=== PATIENT | female | born 1945 | race Caucasian/White ===

== ENCOUNTER → 2016-11-28 | Outpatient (CLI) | payer MEDICARE, OTHER | LOC: RAD 14:22 | PROVIDERS: ATTEND Specialist | DX: C50.919 Malignant neoplasm of unspecified site of unspecified female breast (principal); C79.51 Secondary malignant neoplasm of bone | CPT/HCPCS: 71260; 74160 ==

== ENCOUNTER → 2016-12-09 | Outpatient (CLI) | payer MEDICARE, OTHER | LOC: RAD 09:35 | PROVIDERS: ATTEND Specialist | DX: C50.919 Malignant neoplasm of unspecified site of unspecified female breast (principal); C79.51 Secondary malignant neoplasm of bone | CPT/HCPCS: 78306; A9503; Q9969 ==

== ENCOUNTER 2017-03-17 14:04 | Inpatient (IN) | payer MEDICARE ==
--- NOTE | 2017-03-17 14:21 | ER Document Report ---
ED General - General Stated Complaint: ABDOMINAL PAIN Time Seen by Provider: 03/17/17 14:14 Mode of Arrival: Medic Information source: Patient, Emergency Med Personnel TRAVEL OUTSIDE OF THE [place] IN LAST 30 DAYS: No - HPI Onset: Last week Onset/Duration: Gradual Quality of pain: Achy, Dull Severity: Moderate Associated symptoms: Fever - MAYBE, NOT SURE, Leg swelling, Shortness of breath , Weakness Exacerbated by: Movement Relieved by: Remaining still Similar symptoms previously: No Recently seen / treated by doctor: Yes - Related Data Allergies/Adverse Reactions: aspirin [Aspirin] Allergy (Verified 07/20/15 17:17) Penicillins Allergy (Verified 07/20/15 17:17) mycins Allergy (Severe, Uncoded 07/20/15 17:17) Past Medical History - General Information source: Patient - Social History Smoking Status: Unknown if Ever Smoked Cigarette use (# per day): No Chew tobacco use (# tins/day): No Frequency of alcohol use: None Drug Abuse: None Lives with: Family - + CAREGIVER Family History: Reviewed & Not Pertinent Patient has suicidal ideation: No Patient has homicidal ideation: No - Past Medical History Cardiac Medical History: Reports: Hx Pulmonary Embolism Denies: Hx Coronary Artery Disease, Hx Heart Attack, Hx Hypercholesterolemia , Hx Hypertension Pulmonary Medical History: Reports: Hx Asthma, Hx COPD Denies: Hx Bronchitis, Hx Pneumonia Neurological Medical History: Denies: Hx Cerebrovascular Accident, Hx Seizures Endocrine Medical History: Denies: Hx Diabetes Mellitus Type 1, Hx Diabetes Mellitus Type 2, Hx Hyperthyroidism, Hx Hypothyroidism Malignancy Medical History: Reports: Hx Bone Cancer, Hx Breast Cancer - Metastatic to liver and bone GI Medical History: Denies: Hx Cirrhosis, Hx Gastroesophageal Reflux Disease, Hx Hepatitis Musculoskeltal Medical History: Denies Hx Arthritis Skin Medical History: Denies Hx Eczema, Denies Hx Psoriasis Psychiatric Medical History: Reports: Hx Depression Infectious Medical History: Denies: Hx Hepatitis Past Surgical History: Reports: Hx Breast Surgery - Immunizations Hx Diphtheria, Pertussis, Tetanus Vaccination: No Hx Pneumococcal Vaccination: 08/04/11 Review of Systems - Review of Systems Constitutional: Fever, Weakness EENT: No symptoms reported Cardiovascular: Dyspnea, Edema Respiratory: Short of breath Gastrointestinal: See HPI, Abdomen distended, Abdominal pain Genitourinary: No symptoms reported Female Genitourinary: Post menopausal Musculoskeletal: No symptoms reported Skin: No symptoms reported Neurological/Psychological: Weakness Physical Exam - Vital signs Vitals: Resp Pulse Ox 14 99 03/17/17 14:26 03/17/17 14:26 Interpretation: Normal - General General appearance: Appears well, Alert In distress: None - HEENT Head: Normocephalic Eyes: Pale conjunctiva Ears: Normal Nasal: Normal Mouth/Lips: Normal Mucous membranes: Dry - MILDLY Pharynx: Normal Neck: Normal - Respiratory Respiratory status: No respiratory distress Breath sounds: Normal - Cardiovascular Rhythm: Regular Heart sounds: Normal auscultation Murmur: No - Abdominal Distension: Fluid wave Bowel sounds: Hypoactive Tenderness: Tender - DIFFUSELY - Back Back: Normal - Extremities General upper extremity: Normal inspection General lower extremity: Edema - 2+, BILAT. - Neurological Neuro grossly intact: Yes Cognition: Normal Orientation: AAOx4 - Psychological Associated symptoms: Normal affect, Normal mood - Skin Skin Temperature: Warm Skin Moisture: Dry Skin Color: Normal Skin Turgor: Elastic Course - Vital Signs Vital signs: Temp Pulse Resp BP Pulse Ox 98.7 F 93 20 139/88 H 97 03/17/17 14:33 03/17/17 14:33 03/17/17 21:01 03/17/17 21:01 03/17/17 21:01 - Laboratory Result Diagrams: 03/17/17 14:45 03/17/17 16:05 Laboratory results interpreted by me: 03/17/17 03/17/17 03/17/17 14:45 15:14 16:05 Hgb 16.0 H MCV 100 H MCH 34.2 H RDW 16.2 H Plt Count 139 L Chloride 92 L Carbon Dioxide 38 H Total Bilirubin 1.8 H Direct Bilirubin 1.2 H AST 163 H Alkaline Phosphatase 284 H Urine Protein 30 H Urine Ketones TRACE H Urine Bilirubin SMALL H Urine Urobilinogen 4.0 H - Consults DR. CARDOZO Time consulted: 23:16 Reason for consultation: 03/17/17 23:28 RESULTS OF LAB & RADIOGRAPHIC STUDIES DISCUSSED. ACUTE SURGICAL PROBLEM FELT TO BE EXTREMELY UNLIKELY. WILL SEE IN CONSULTATION PRN. 03/17/17 23:29 DR. SMITH Time consulted: 23:20 Reason for consultation: 03/17/17 23:[address] SMITH. Consulted provider: will see as inpatient Discharge - Discharge Clinical Impression: Spontaneous bacterial peritonitis Abdominal pain Qualifiers: Abdominal location: generalized Qualified Code(s): R10.84 - Generalized abdominal pain Breast cancer metastasized to liver Qualifiers: Laterality: left Qualified Code(s): C50.912 - Malignant neoplasm of unspecified site of left female breast Ascites Qualifiers: Ascites type: malignant Qualified Code(s): R18.0 - Malignant ascites Condition: Fair Disposition: ADMITTED INPATIENT Admitting Provider: [facility] Unit Admitted: Medical Floor Referrals: JHON BEATTY MD [Primary Care Provider] - Follow up as needed
[2017-03-17 15:21] LABS: ABSOLUTE BASOPHILS # (AUTO) 0.1 10^3/uL (0.0-0.2); ABSOLUTE LYMPHOCYTES (AUTO) 1.5 10^3/uL (0.5-4.7); ABSOLUTE MONOCYTES (AUTO) 1.2 10^3/uL (0.1-1.4); ABSOLUTE NEUT (AUTO) 7.7 10^3/uL (1.7-8.2); BASOPHILS % (AUTO) 0.6 % (0-2); EOSINOPHILS % (AUTO) 0.3 % (0-6); HEMATOCRIT 46.5 % (36.0-47.0); HGB HCT DIFFERENCE 1.5; LYMPHOCYTES % (AUTO) 14.7 % (13-45); MEAN CORPUSCULAR HEMOGLOBIN 34.2 pg (27.0-33.4); MEAN CORPUSCULAR HGB CONC 34.3 g/dL (32.0-36.0); MEAN CORPUSCULAR VOLUME 100 fl (80-97); MONOCYTES % (AUTO) 11.3 % (3-13); RED BLOOD COUNT 4.67 10^6/uL (3.72-5.28); RED CELL DISTRIBUTION WIDTH 16.2 % (11.5-14.0); SEGMENTED NEUTROPHILS % (AUTO) 73.1 % (42-78); WHITE BLOOD COUNT 10.5 10^3/uL (4.0-10.5)
--- NOTE | 2017-03-17 16:02 | RADIOLOGY REPORT (SQ) ---
EXAM DESCRIPTION: ACUTE ABDOMEN SERIES COMPLETED DATE/TIME: 03/17/2017 3:37 pm REASON FOR STUDY: ABD. PAIN COMPARISON: None. NUMBER OF VIEWS: Three views. TECHNIQUE: Frontal chest, supine abdomen and upright abdomen radiographic images acquired. LIMITATIONS: None. FINDINGS: CHEST: Lungs clear of infiltrates. FREE AIR: None. No abnormal gas collections. BOWEL GAS PATTERN: Nonobstructive pattern. No dilated loops or air fluid levels. CALCIFICATIONS: No suspicious calcifications. HARDWARE: An injection port is present on the right side of the chest with the tip of the catheter in the superior vena cava. SOFT TISSUES: No gross mass or suggestion of organomegaly. BONES: Mild lumbar scoliosis and degenerative disc changes. Thoracic spondylosis. OTHER: No other significant finding. IMPRESSION: 1. Nonspecific abdomen with no evidence of bowel obstruction. 2. Thoracic spondylosis and lumbar scoliosis and mild degenerative disc change. TECHNICAL DOCUMENTATION: JOB ID: [id number] [employer]- All Rights Reserved
[2017-03-17 16:18] LABS: APPEARANCE,URINE CLOUDY; BILIRUBIN,URINE SMALL (NEGATIVE); GLUCOSE, URINE NEGATIVE (NEGATIVE); KETONES,URINE TRACE mg/dL (NEGATIVE); LEUKOCYTE ESTERASE,URINE NEGATIVE (NEGATIVE); NITRITE,URINE NEGATIVE (NEGATIVE); PROTEIN,URINE 30 mg/dL (NEGATIVE); URINE SPECIFIC GRAVITY 1.028
[2017-03-17 16:37] LABS: ALANINE AMINOTRANSFERASE 37 U/L (9-52); ALBUMIN 3.6 g/dL (3.5-5.0); ALKALINE PHOSPHATASE 284 U/L (38-126); ANION GAP 10 (5-19); ASPARTATE AMINO TRANSFERASE 163 U/L (14-36); BILIRUBIN,DIRECT 1.2 mg/dL (0.0-0.4); BILIRUBIN,TOTAL 1.8 mg/dL (0.2-1.3); BLOOD UREA NITROGEN 12 mg/dL (7-20); CALCIUM 9.8 mg/dL (8.4-10.2); CARBON DIOXIDE 38 mmol/L (22-30); CHLORIDE 92 mmol/L (98-107); CREATININE RESULT 0.63 mg/dL (0.52-1.25); GLUCOSE 89 mg/dL (75-110); LIPASE 34.5 U/L (23-300); POTASSIUM 3.6 mmol/L (3.6-5.0); SODIUM 139.7 mmol/L (137-145); TOTAL PROTEIN 7.4 g/dL (6.3-8.2)
[2017-03-17] MEDS ORDERED: CEFTRIAXONE 2 GM/D5W RTU 50 ML IV ONE (18:19)
[2017-03-17] MEDS ORDERED: NORMAL SALINE 1000 ML 500 ML IV ONE (18:51)
--- NOTE | 2017-03-17 22:35 | RADIOLOGY REPORT (SQ) ---
EXAM DESCRIPTION: CT ABD/PELVIS WITH IV ORAL COMPLETED DATE/TIME: 03/17/2017 10:15 pm REASON FOR STUDY: ABDOMINAL PAIN COMPARISON: June 2016 TECHNIQUE: CT scan of the abdomen and pelvis performed using helical scanning technique with dynamic intravenous contrast injection and oral contrast. Images reviewed with lung, soft tissue, and bone w indows. Reconstructed coronal and sagittal MPR images reviewed. Delayed images for evaluation of the urinary system also acquired. All images stored on PACS. All CT scanners at this facility use dose modulation, iterative reconstruction, and/or weight based d osing when appropriate to reduce radiation dose to as low as reasonably achievable (ALARA). [facility]: Dose Right [facility]: CareDose [facility]: Dose Right [facility]: Teradose 4D [facility]: [employer] CONTRAST TYPE AND DOSE: contrast/concentration: Isovue 370.00 mg/ml; Total Contrast Delivered: 66.0 ml; Total Saline Delivered: 65.0 ml RENAL FUNCTION: Creatinine 0.63 RADIATION DOSE: Up-to-date CT equipment and radiation dose reduction techniques were employed. CTDIv ol: 15.3 - 18.5 mGy. DLP: 1613 mGy-cm.. LIMITATIONS: None. FINDINGS: LOWER CHEST: No significant findings. No nodules or infiltrates. LIVER: There are multiple varying size relative low density areas throughout the liver suspicious for diffuse metastatic disease. SPLEEN: Normal size. No focal lesions. PANCREAS: No masses. No significant calcifications. No adjacent inflammation or peripancreatic fluid collections. Pancreatic duct not dilated. GALLBLADDER: No identified stones by CT criteria. No inflammatory changes to suggest cholecystitis. ADRENAL GLANDS: No significant masses or asymmetry. RIGHT KIDNEY AND URETER: No solid masses. No significant calcifications. No hydronephrosis or hyd roureter. LEFT KIDNEY AND URETER: No solid masses. No significant calcifications. No hydronephrosis or hydr oureter. AORTA AND VESSELS: Infrarenal abdominal aortic aneurysm is identified measuring 3.3 cm in diameters. There are vascular calcifications and a small component of intraluminal clot. RETROPERITONEUM: No retroperitoneal adenopathy, hemorrhage or masses. BOWEL AND PERITONEAL CAVITY: No masses or inflammatory changes. Intra-abdominal and pelvic ascitic f luid is identified. APPENDIX: Not visualized PELVIS: Large amount of pelvic ascitic fluid is identified. ABDOMINAL WALL: No masses. No hernias. BONES: There are multiple scattered bony sclerotic lesions consistent with metastatic disease. OTHER: No other significant finding. IMPRESSION: Multiple varying size relative low density areas throughout the liver suspicious for dif fuse metastatic disease. There is intra-abdominal and pelvic ascitic fluid. Multiple scattered bony sclerotic lesions consistent with metastatic disease. Other findings as noted above TECHNICAL DOCUMENTATION: JOB ID: [id number] Quality ID # [id number]: Final reports with documentation of one or more dose reduction techniques (e.g., Au tomated exposure control, adjustment of the mA and/or kV according to patient size, use of iterative reconstruction technique) 2010 [employer]- All Rights Reserved
[2017-03-17] MEDS ORDERED: ACETAMINOPHEN 325 MG TABLET PO PRN (23:21)
[2017-03-17] MEDS ORDERED: NORMAL SALINE 1000 ML 1,000 ML IV PRN (23:21)
[2017-03-17] MEDS ORDERED: CLONAZEPAM 1 MG TABLET PO PRN (23:25)
[2017-03-17] MEDS ORDERED: FENTANYL 12 MCG/HR PATCH.TD72 TD ONE (23:59)
[2017-03-18] MEDS: ALBUTEROL SULFATE HFA (90 MCG/PUFF) 8 GM MDI (1 MDI/ER DISP) IH PRN ×2 (03:35→04:49)
[2017-03-18] MEDS: PROMETHAZINE HCL 25 MG TABLET PO PRN ×2 (03:35→04:49)
[2017-03-18] MEDS: OXYCODONE HCL IR 5 MG TABLET PO PRN ×2 (03:35→04:49)
[2017-03-18] MEDS: LANSOPRAZOLE 15 MG TAB.RAP.DR PO SCH ×2 (06:11→17:28)
[2017-03-18 06:44] LABS: ABSOLUTE BASOPHILS # (AUTO) 0.1 10^3/uL (0.0-0.2); ABSOLUTE LYMPHOCYTES (AUTO) 1.6 10^3/uL (0.5-4.7); ABSOLUTE NEUT (AUTO) 7.8 10^3/uL (1.7-8.2); BASOPHILS % (AUTO) 0.6 % (0-2); EOSINOPHILS % (AUTO) 0.2 % (0-6); HEMATOCRIT 47.8 % (36.0-47.0); HEMOGLOBIN 15.6 g/dL (12.0-15.5); LYMPHOCYTES % (AUTO) 14.9 % (13-45); MEAN CORPUSCULAR HEMOGLOBIN 33.1 pg (27.0-33.4); MEAN CORPUSCULAR HGB CONC 32.6 g/dL (32.0-36.0); MEAN CORPUSCULAR VOLUME 102 fl (80-97); MONOCYTES % (AUTO) 9.7 % (3-13); RED CELL DISTRIBUTION WIDTH 16.2 % (11.5-14.0); SEGMENTED NEUTROPHILS % (AUTO) 74.6 % (42-78); WHITE BLOOD COUNT 10.5 10^3/uL (4.0-10.5)
[2017-03-18 06:54] LABS: ALANINE AMINOTRANSFERASE 41 U/L (9-52); ALBUMIN 3.3 g/dL (3.5-5.0); ALKALINE PHOSPHATASE 246 U/L (38-126); ANION GAP 11 (5-19); ASPARTATE AMINO TRANSFERASE 142 U/L (14-36); BILIRUBIN,DIRECT 1.1 mg/dL (0.0-0.4); BILIRUBIN,TOTAL 1.6 mg/dL (0.2-1.3); BLOOD UREA NITROGEN 12 mg/dL (7-20); CALCIUM 9.2 mg/dL (8.4-10.2); CARBON DIOXIDE 33 mmol/L (22-30); CHLORIDE 94 mmol/L (98-107); GLUCOSE 77 mg/dL (75-110); POTASSIUM 3.5 mmol/L (3.6-5.0); SODIUM 137.6 mmol/L (137-145)
[2017-03-18 06:55] LABS: TOTAL PROTEIN 6.6 g/dL (6.3-8.2)
[2017-03-18] MEDS ORDERED: ALBUTEROL SULFATE HFA (90 MCG/PUFF) 200 PUFF/8.5 GM MDI IH PRN (07:51)
[2017-03-18] MEDS ORDERED: OXYCODONE HCL IR 5 MG TABLET PO PRN (07:52)
[2017-03-18] MEDS ORDERED: PROMETHAZINE HCL 25 MG TABLET PO PRN (07:53)
[2017-03-18] MEDS: IPRATROPIUM/ALBUTEROL 0.5-2.5 MG/3 ML AMPUL NEB SCH ×3 (08:26→20:10)
--- NOTE | 2017-03-18 08:33 | PDOC CONSULTATION ---
Consultation Consult Date: 03/18/17 Attending physician:: JHON BEATTY Consult reason:: Severe abd pain and diarrhea, stage IV breast ca History of Present Illness Admission Date/PCP: 03/17/17 23:22 JHON BEATTY MD Patient complains of: Severe abd pain and diarrhea, stage IV breast ca History of Present Illness: CASEY GARCIA is a 71 year old female with known hx of stage IV breast ca w/ mets to bone and liver. She has not been seen in our clinic since december of transportation issues and has not had active chemo rx for some time. She has had 1 wk of abd pain on eating and 3 days prior to admit severe abd pain and diarrhea. Of note, her daughter who lives with her was complaining of similar sx. She had CT a/p indicating overall stable liver and bone mets but large amt ascitis. Past Medical History Cardiac Medical History: Reports: Pulmonary Embolism Denies: Coronary Artery Disease, Myocardial Infarction, Hyperlipidema, Hypertension Pulmonary Medical History: Reports: Asthma, Chronic Obstructive Pulmonary Disease (COPD) Denies: Bronchitis, Pneumonia Neurological Medical History: Denies: Seizures Endocrine Medical History: Denies: Diabetes Mellitus Type 1, Diabetes Mellitus Type 2, Hyperthyroidism, Hypothyroidism Malignancy Medical History: Reports: Bone Cancer, Breast Cancer - Metastatic to liver and bone GI Medical History: Denies: Cirrhosis, Gastroesophageal Reflux Disease, Hepatitis Musculoskeltal Medical History: Denies: Arthritis Skin Medical History: Denies: Eczema, Psoriasis Psychiatric Medical History: Reports: Depression Hematology: Denies: Anemia Past Surgical History Past Surgical History: Reports: Other - breast ca surgery Social History Lives with: Family - + CAREGIVER Smoking Status: Unknown if Ever Smoked Frequency of Alcohol Use: None Hx Recreational Drug Use: No Drugs: None Hx Prescription Drug Abuse: No Family History Family History: Reviewed & Not Pertinent Parental Family History Reviewed: Yes Children Family History Reviewed: Yes Sibling(s) Family History Reviewed.: Yes Medication/Allergy Allergies/Adverse Reactions: aspirin [Aspirin] Allergy (Verified 07/20/15 17:17) Penicillins Allergy (Verified 07/20/15 17:17) mycins Allergy (Severe, Uncoded 07/20/15 17:17) Review of Systems Constitutional: ABSENT: chills, fever(s), headache(s), weight gain, weight loss Eyes: ABSENT: visual disturbances Ears: ABSENT: hearing changes Cardiovascular: ABSENT: chest pain, dyspnea on exertion, edema, orthropnea, palpitations Respiratory: ABSENT: cough, hemoptysis Gastrointestinal: ABSENT: abdominal pain, constipation, diarrhea, hematemesis, hematochezia, nausea, vomiting Genitourinary: ABSENT: dysuria, hematuria Musculoskeletal: ABSENT: joint swelling Integumentary: ABSENT: rash, wounds Neurological: ABSENT: abnormal gait, abnormal speech, confusion, dizziness, focal weakness, syncope Psychiatric: ABSENT: anxiety, depression, homidical ideation, suicidal ideation Endocrine: ABSENT: cold intolerance, heat intolerance, polydipsia, polyuria Hematologic/Lymphatic: ABSENT: easy bleeding, easy bruising Physical Exam Vital Signs: Temp Pulse Resp BP Pulse Ox 98.2 F 86 20 138/86 H 95 03/18/17 02:19 03/18/17 02:19 03/18/17 02:19 03/18/17 02:19 03/18/17 02:19 Intake & Output 03/17/17 03/18/17 03/19/17 06:59 06:59 06:59 Weight 61 kg General appearance: PRESENT: no acute distress, well-developed, well-nourished Head exam: PRESENT: atraumatic, normocephalic Eye exam: PRESENT: conjunctiva pink, EOMI, PERRLA. ABSENT: scleral icterus Ear exam: PRESENT: normal external ear exam Mouth exam: PRESENT: moist, tongue midline Neck exam: ABSENT: carotid bruit, JVD, lymphadenopathy, thyromegaly Respiratory exam: PRESENT: clear to auscultation jessica. ABSENT: rales, rhonchi, wheezes Cardiovascular exam: PRESENT: RRR. ABSENT: diastolic murmur, rubs, systolic murmur Pulses: PRESENT: normal dorsalis pedis pul Vascular exam: PRESENT: normal capillary refill GI/Abdominal exam: PRESENT: normal bowel sounds, soft. ABSENT: distended, guarding, mass, organolmegaly, rebound, tenderness Rectal exam: PRESENT: deferred Extremities exam: PRESENT: full ROM. ABSENT: calf tenderness, clubbing, pedal edema Neurological exam: PRESENT: alert, awake, oriented to person, oriented to place , oriented to time, oriented to situation, CN II-XII grossly intact. ABSENT: motor sensory deficit Psychiatric exam: PRESENT: appropriate affect, normal mood. ABSENT: homicidal ideation, suicidal ideation Skin exam: PRESENT: dry, intact, warm. ABSENT: cyanosis, rash Results Laboratory Results: 03/18/17 06:10 03/18/17 06:10 03/18/17 03/18/17 06:10 06:10 WBC 10.5 RBC 4.70 Hgb 15.6 H Hct 47.8 H MCV 102 H MCH 33.1 MCHC 32.6 RDW 16.2 H Plt Count 135 L Seg Neutrophils % 74.6 Lymphocytes % 14.9 Monocytes % 9.7 Eosinophils % 0.2 Basophils % 0.6 Absolute Neutrophils 7.8 Absolute Lymphocytes 1.6 Absolute Monocytes 1.0 Absolute Eosinophils 0.0 Absolute Basophils 0.1 Sodium 137.6 Potassium 3.5 L Chloride 94 L Carbon Dioxide 33 H Anion Gap 11 BUN 12 Creatinine 0.60 Est GFR ( Amer) > 60 Est GFR (Non-Af Amer) > 60 Glucose 77 Calcium 9.2 Total Bilirubin 1.6 H AST 142 H ALT 41 Alkaline Phosphatase 246 H Total Protein 6.6 Albumin 3.3 L Impressions: Acute Abdomen Series 03/17/17 14:26 IMPRESSION: 1. Nonspecific abdomen with no evidence of bowel obstruction. 2. Thoracic spondylosis and lumbar scoliosis and mild degenerative disc change. Abdomen/Pelvis CT 03/17/17 18:58 IMPRESSION: Multiple varying size relative low density areas throughout the liver suspicious for diffuse metastatic disease. There is intra-abdominal and pelvic ascitic fluid. Multiple scattered bony sclerotic lesions consistent with metastatic disease. Other findings as noted above Assessment & Plan - Diagnosis (1) Abdominal pain Qualifiers: Abdominal location: generalized Qualified Code(s): R10.84 - Generalized abdominal pain Is this a current diagnosis for this admission?: YesPlan: Likely related in part to colitis type picture, could be viral, will send for C diff today. Also related in part to ascitis, will order u/s guided paracentesis (2) Ascites Qualifiers: Ascites type: malignant Qualified Code(s): R18.0 - Malignant ascites Is this a current diagnosis for this admission?: YesPlan: Possibly malignant but don't see that we had this in our records in past, will order paracentesis today (3) Malignant neoplasm of breast, stage 4 Qualifiers: Laterality: unspecified laterality Qualified Code(s): C50.919 - Malignant neoplasm of unspecified site of unspecified female breast Is this a current diagnosis for this admission?: YesPlan: Overall stable dx on imaging except for ascitis. Has not had active rx thru our office b/c of transport issues. - Time Time Spent: Greater than 70 Minutes Critical Time spent with patient: 35 or more minutes
[2017-03-18 10:19] LABS: PROTHROMBIN TIME 15.7 SEC (11.4-15.4)
[2017-03-18 10:20] LABS: PARTIAL THROMBOPLASTIN TIME 32.9 SEC (23.5-35.8)
--- NOTE | 2017-03-18 12:13 | PDOC H&P ---
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 Regalado as outpatient and the patient is currently living with her daughter came to the emergency department with a complaint of some abdominal discomfort and the painAnd the patient's underwent for the CT abdomen and pelvis which suggest a more liver lesion and also ascites. Patient is currently not taking any chemo or radiation's Patient have a significant history of the COPD and the recently admitting in the hospital in ICU and intubated Patient seen by the general surgery and suggest do not look like any peritonitisPatient also complains some loose stoolDenied any nausea no vomiting Patient's appetite is still very poor Past Medical History Cardiac Medical History: Reports: Pulmonary Embolism Denies: Coronary Artery Disease, Myocardial Infarction, Hyperlipidema, Hypertension Pulmonary Medical History: Reports: Asthma, Chronic Obstructive Pulmonary Disease (COPD) Denies: Bronchitis, Pneumonia Neurological Medical History: Denies: Seizures Endocrine Medical History: Denies: Diabetes Mellitus Type 1, Diabetes Mellitus Type 2, Hyperthyroidism, Hypothyroidism Malignancy Medical History: Reports: Bone Cancer, Breast Cancer - Metastatic to liver and bone GI Medical History: Denies: Cirrhosis, Gastroesophageal Reflux Disease, Hepatitis Musculoskeltal Medical History: Denies: Arthritis Skin Medical History: Denies: Eczema, Psoriasis Psychiatric Medical History: Reports: Depression Hematology: Denies: Anemia Past Surgical History Past Surgical History: Reports: Other - breast ca surgery Social History Lives with: Family - + [employer] Smoking Status: Unknown if Ever Smoked Frequency of Alcohol Use: None Hx Recreational Drug Use: No Drugs: None Hx Prescription Drug Abuse: No Family History Family History: Reviewed & Not Pertinent Parental Family History Reviewed: Yes Children Family History Reviewed: Yes Sibling(s) Family History Reviewed.: Yes Medication/Allergy Home Medications: Albuterol Sulfate [Ventolin Hfa] 1 puff IH Q4 PRN 03/18/17 Clonazepam [Klonopin] 0.5 mg PO Q12 03/18/17 Ergocalciferol (Vitamin D2) [Vitamin D2] 50,000 unit PO FR@1000 03/18/17 Fentanyl [Duragesic 75 Mcg/Hr Transdermal Patch] 1 each TD Q3D 03/18/17 Oxycodone HCl [Oxy-Ir 5 mg Tablet] 5 mg PO Q4HP PRN 03/18/17 Allergies/Adverse Reactions: aspirin [Aspirin] Allergy (Verified 07/20/15 17:17) Penicillins Allergy (Verified 07/20/15 17:17) mycins Allergy (Severe, Uncoded 07/20/15 17:17) Review of Systems Constitutional: ABSENT: chills, fever(s), headache(s), weight gain, weight loss Eyes: ABSENT: visual disturbances Ears: ABSENT: hearing changes Cardiovascular: ABSENT: chest pain, dyspnea on exertion, edema, orthropnea, palpitations Respiratory: ABSENT: cough, hemoptysis Gastrointestinal: PRESENT: abdominal pain. ABSENT: constipation, diarrhea, hematemesis, hematochezia, nausea, vomiting Genitourinary: ABSENT: dysuria, hematuria Musculoskeletal: ABSENT: joint swelling Integumentary: ABSENT: rash, wounds Neurological: ABSENT: abnormal gait, abnormal speech, confusion, dizziness, focal weakness, syncope Psychiatric: ABSENT: anxiety, depression, homidical ideation, suicidal ideation Endocrine: ABSENT: cold intolerance, heat intolerance, menstrual abnormalities, polydipsia, polyuria Hematologic/Lymphatic: ABSENT: easy bleeding, easy bruising, lymphadenopathy Physical Exam Vital Signs: Temp Pulse Resp BP Pulse Ox 98.4 F 94 16 131/65 H 95 03/18/17 07:39 03/18/17 08:26 03/18/17 08:26 03/18/17 07:39 03/18/17 08:26 Intake & Output 03/17/17 03/18/17 03/19/17 06:59 06:59 06:59 Weight 61 kg General appearance: PRESENT: no acute distress, well-developed, well-nourished Head exam: PRESENT: atraumatic, normocephalic Eye exam: PRESENT: conjunctiva pink, EOMI, PERRLA. ABSENT: scleral icterus Ear exam: PRESENT: normal external ear exam Mouth exam: PRESENT: moist, tongue midline Neck exam: PRESENT: full ROM. ABSENT: carotid bruit, JVD, lymphadenopathy, thyromegaly Respiratory exam: PRESENT: clear to auscultation jessica Cardiovascular exam: PRESENT: RRR. ABSENT: diastolic murmur, rubs, systolic murmur Pulses: PRESENT: normal dorsalis pedis pul, +2 pedal pulses bilateral Vascular exam: PRESENT: normal capillary refill GI/Abdominal exam: PRESENT: ascites, normal bowel sounds, soft, tenderness. ABSENT: distended, guarding, mass, organolmegaly, rebound Rectal exam: PRESENT: deferred Neurological exam: PRESENT: alert, awake, oriented to person, oriented to place , oriented to time, oriented to situation, CN II-XII grossly intact. ABSENT: motor sensory deficit Psychiatric exam: PRESENT: appropriate affect, normal mood. ABSENT: homicidal ideation, suicidal ideation Skin exam: PRESENT: dry, intact, warm. ABSENT: cyanosis, rash Results Laboratory Results: 03/18/17 06:10 03/18/17 06:10 03/18/17 03/18/17 06:10 06:10 WBC 10.5 RBC 4.70 Hgb 15.6 H Hct 47.8 H MCV 102 H MCH 33.1 MCHC 32.6 RDW 16.2 H Plt Count 135 L Seg Neutrophils % 74.6 Lymphocytes % 14.9 Monocytes % 9.7 Eosinophils % 0.2 Basophils % 0.6 Absolute Neutrophils 7.8 Absolute Lymphocytes 1.6 Absolute Monocytes 1.0 Absolute Eosinophils 0.0 Absolute Basophils 0.1 Sodium 137.6 Potassium 3.5 L Chloride 94 L Carbon Dioxide 33 H Anion Gap 11 BUN 12 Creatinine 0.60 Est GFR ( Amer) > 60 Est GFR (Non-Af Amer) > 60 Glucose 77 Calcium 9.2 Total Bilirubin 1.6 H AST 142 H ALT 41 Alkaline Phosphatase 246 H Total Protein 6.6 Albumin 3.3 L Impressions: Acute Abdomen Series 03/17/17 14:26 IMPRESSION: 1. Nonspecific abdomen with no evidence of bowel obstruction. 2. Thoracic spondylosis and lumbar scoliosis and mild degenerative disc change. Abdomen/Pelvis CT 03/17/17 18:58 IMPRESSION: Multiple varying size relative low density areas throughout the liver suspicious for diffuse metastatic disease. There is intra-abdominal and pelvic ascitic fluid. Multiple scattered bony sclerotic lesions consistent with metastatic disease. Other findings as noted above Assessment & Plan - Diagnosis (1) Abdominal pain Qualifiers: Abdominal location: generalized Qualified Code(s): R10.84 - Generalized abdominal pain Is this a current diagnosis for this admission?: YesPlan: Most likely underlying ascites will order the paracentesis and continues to monitor the patient's follow with the general surgery (2) Ascites Qualifiers: Ascites type: malignant Qualified Code(s): R18.0 - Malignant ascites Is this a current diagnosis for this admission?: YesPlan: Most likely a malignant (3) Malignant neoplasm of breast, stage 4 Qualifiers: Laterality: unspecified laterality Qualified Code(s): C50.919 - Malignant neoplasm of unspecified site of unspecified female breast Is this a current diagnosis for this admission?: YesPlan: Consult the oncology for further evaluation (4) Opiate dependence, continuous Is this a current diagnosis for this admission?: Yes (5) COPD (chronic obstructive pulmonary disease) Qualifiers: COPD type: unspecified COPD Qualified Code(s): J44.9 - Chronic obstructive pulmonary disease, unspecified Is this a current diagnosis for this admission?: YesPlan: Continues to nebulizer treatment (6) Depression Qualifiers: Depression Type: major depressive disorder Is this a current diagnosis for this admission?: Yes - Time Time Spent: 30 to 50 Minutes Medications reviewed and adjusted accordingly: Yes Anticipated discharge: Home Within: Other - Inpatient Certification Medical Necessity: Need Close Monitoring Due to Risk of Patient Decompensation Post Hospital Care: D/C Bargain Table Clerk Documentation - Plan Summary Plan Summary: Will check the stool for the C. difficile scheduled for the paracentesis and order the ultrasound for the lower extremity and will discuss the family about the patient's current conditions. Discussed with the patient's very extensively
--- NOTE | 2017-03-18 12:18 | RADIOLOGY REPORT (SQ) ---
EXAM DESCRIPTION: U/S ABD PARACENTESIS COMPLETED DATE/TIME: 03/18/2017 11:55 am REASON FOR STUDY: Abd pain/send fluid for cytology COMPARISON CT abdomen pelvis 11/28/2016, 03/17/2017 LIMITATIONS: None. PROCEDURE: After obtaining informed consent, the patient was brought to the ultrasound suite. The p rocedure was performed with the patient on a gurney. Ultrasound was used to identify a prominent poc ket of ascites in the right lower quadrant. An appropriate access site was selected. The patient wa s prepped and draped in usual sterile fashion. The access site was anesthetized with 10 mL 1% lidoc bryant. A Osbh-R-Ojigjqoz needle was advanced into the fluid. After aspiration of fluid the needle, t he catheter was advanced off the needle into the fluid. A total of 2000 mL of cloudy yellow fluid wa s removed. The patient tolerated the procedure well left the department in satisfactory condition. Specimens were sent for cytology. Report pending. IMPRESSION: Successful ultrasound-guided diagnostic and therapeutic paracentesis COMMENT: Patient medication list reviewed: Yes- Quality ID# [id number]:Eligible professional attests to doc umenting in the medical record they obtained, updated, or reviewed the patient's current medications. Quality ID #76: The patient was prepped and draped using maximum sterile barrier technique including cap, mask, sterile gown, sterile gloves, a large sterile sheet, hand hygiene, and 2% Chlorhexidine fo r cutaneous antisepsis. When ultrasound is used, sterile ultrasound techniques are followed requiring sterile gel and sterile probes. Quality ID #[id number]: Final reports for procedures using fluoroscopy that document radiation exposure ragini meera, or exposure time and number of fluorographic images (if radiation exposure indices are not avail able) TECHNICAL DOCUMENTATION: JOB ID: [id number] [employer]- All Rights Reserved
[2017-03-18] MEDS ORDERED: CLONAZEPAM 1 MG TABLET PO PRN (12:25)
[2017-03-18] MEDS: METRONIDAZOLE 500 MG TABLET PO SCH ×2 (13:30→21:09)
--- NOTE | 2017-03-18 14:01 | Physician Advisory Note ---
Physician Advisor ProgressNote .: [facility] have reviewed the medical record for this patient. Physician Advisor Statement: Please consider documentin. "SOB, likely due to " 2. ? - Is there "Ac hypoxemic resp failure" [or is it just "hypoxemia" without increased work of breathing]? (If so, please also mention any labored breathing/accessory muscle use/etc that supports this dx.) Initial O2 sat 93% on 2L nc, for a P/F ratio of 243. Subsequent sat 88% on ? O2 at 23:32 w/HR 90s. 3. Medical necessity - please explicitly document reasons pt not clinically safe for d/c to home 03/18. Status: 71yo Medicare pt w/SOB/abd pain/ascites - came in 03/17 PM. Has already spent 1 MN in hospital care. Has had paracentesis done w/cytology ordered on fluid, suspecting this is malignant. Pathology results unlikely to be available immediately, pt needs close monitoring and time-sensitive planning based on results - if ascites not malignant, the ED dr's concern for SBP may still need to be entertained acutely. Meanwhile, attending appears to still suspect acute C.diff colitis despite neg test, and has started po flagyl, with need to monitor for response since this dx is also not completely clear and sx continue. Evaluation is ongoing. Pt not expected to be stable to go home 03/18 after 1MN. Appropriate for Inpt status. Discussion: 71yo w/stage 4 breast CA metastatic to bone/liver, not receiving chemo or XRT for some time now given transportation issues, also underlying COPD , prior PE, (+) Rt upper chest PAC, now in w/SOB, abd pain/distension w/new ascites that is suspected to be malignant, tachycardia, tachypnea, hypoxemia ( above), BLE edema, high H/H (only recently quit smoking), bicarb 38, TB 1.8, AST 163, AP 284, U/A w/trace ketones. ED nurse hx indicates pt has had constipation x 2 days. Onc consult note reports diarrhea. Attg ordered test for C.diff, & notes opioid dependence. CT report does not indicate significant stool burden in abd. ED gave Rocephin & 500ml fluid bolus. Attending ordered Duonebs q6h WA + albuterol prn, NS @60, continued Duragesic + prns for pain, onc & surg consults. As of 03/18 AM, nursing assessment reports continued diarrhea, attending has ordered po flagyl. Paracentesis done 03/18 @11:55 removed 2L cloudy yellow fluid from abd. Onc ordered fluid sent for cytology. On 03/18, attending has also added prn Klonopin, ordered BLE dopplers.
--- NOTE | 2017-03-18 15:07 | CONSULTATION REPORT E ---
Consultation Report NAME: CASEY GARCIA : 1945 AGE: 71Y DATE: 03/18/2017 209 A TO: NICHOLAS SALDAÑA M.D. FROM: JHON BEATTY M.D. Requesting Physician REASON FOR CONSULTATION: Patient with CAT scan of the abdomen showing mets to the liver and ascites. HISTORY OF PRESENT ILLNESS: This is a 71-year-old female with known history of stage IV breast cancer with mets to the bone and liver. She had some abdominal pains with diarrhea. She just came back from radiology department where peritoneal fluid aspiration was done. Apparently had about 2 L of fluid removed from the abdomen. PAST MEDICAL HISTORY: History of pulmonary embolism. History of asthma and COPD. Denies any seizures. Endocrine, denies diabetes. Malignancy: Breast cancer metastatic to the liver and bone. GI: Denies GERD or cirrhosis of the liver. Musculoskeletal: Denies any arthritis. Skin: Denies any eczema or psoriasis. Psychiatric: Reports depression. Hematology: No easy bruisability. PAST SURGICAL HISTORY: Breast cancer surgery. SOCIAL HISTORY: Unknown if ever smoked. Alcohol use none. No recreational drug use. FAMILY HISTORY: Noncontributory. ALLERGIES: ASPIRIN, PENICILLIN, AND MYCIN. REVIEW OF SYSTEMS: CONSTITUTIONAL: Denies any chills, fever, headaches, or weight loss. EYES AND EARS: No changes. CARDIOVASCULAR: No chest pain. RESPIRATORY: No cough. GASTROINTESTINAL: Complains of some abdominal pain and diarrhea. GENITOURINARY: No dysuria. MUSCULOSKELETAL: No joint swelling. INTEGUMENTARY: Denies any rash or wounds. NEUROLOGIC: No seizures or confusion. PSYCHIATRIC: No anxiety or depression. ENDOCRINE: No cold intolerance or heat intolerance. HEMATOLOGIC: No easy bruisability. PHYSICAL EXAMINATION: VITAL SIGNS: Temperature 98.2, pulse 86 per minute, respirations 20 per minute, blood pressure 138/86, pulse ox 95% on room air. GENERAL: Patient in no acute distress. Appears well nourished and well developed. HEAD: Atraumatic, normocephalic. EYE: Conjunctivae pink, PERRLA. EARS: No external ear problems. NECK: No carotid bruit. No lymphadenopathy or thyromegaly. RESPIRATION: Lungs were clear to auscultation. HEART: Regular sinus rhythm. EXTREMITIES: Pulses present. Dorsalis pedis. VASCULAR EXAM: Normal capillary refill. GASTROINTESTINAL: Bowel sounds are distended. Paracentesis site with dressing dry. RECTAL EXAM: Deferred. LABORATORY: White count 10.5, hemoglobin 15.6. Abdomen CAT scan showed liver suspicious for diffuse metastatic disease. *------* fluid. IMPRESSION: Metastatic breast cancer with mets to the liver and to the bones. PLAN: At this point there is no indication for any surgical abdomen at this time. We will follow p.r.n. DICTATING PHYSICIAN: NICHOLAS SALDAÑA M.D. [id number] PHY#: [id number] ID: [id number] JOB#: [id number] ACCT: [id number] cc:NICHOLAS SALDAÑA M.D. >
[2017-03-18 15:54] LABS: FLUID TYPE PERITONEAL
[2017-03-18 15:55] LABS: FLUID APPEARANCE CLOUDY; FLUID RBC DILUENT USED NONE USED; FLUID RBC DILUTION FACTOR 1; FLUID RBC SIDE 1 93; FLUID RBC SIDE 2 83; TOTAL RBC SQUARES COUNTED FLD 225
--- NOTE | 2017-03-18 16:08 | RADIOLOGY REPORT (SQ) ---
EXAM DESCRIPTION: VENOUS BILATERAL LOWER COMPLETED DATE/TIME: 03/18/2017 3:36 pm REASON FOR STUDY: lower ext edema/r/o dvt COMPARISON: None. TECHNIQUE: Dynamic and static davey scale and color images acquired of both lower extremity venous sy stems. Selected spectral images acquired with additional compression and augmentation maneuvers. Imag es stored on PACS. LIMITATIONS: None. FINDINGS: RIGHT LEG COMMON FEMORAL AND FEMORAL: Normal phasicity, compression and augmentation. No visualized echogenic m aterial on davey scale. No defects on color images. POPLITEAL: Normal compression and augmentation. No visualized echogenic material on davey scale. No de fects on color images. CALF VESSELS: Normal compression and augmentation. No visualized echogenic material on davey scale. No defects on color image. GSV AND SSV: Normal compression. No visualized echogenic material on davey scale. No defects on color images. ANY DEEP VENOUS INSUFFICIENCY: Not evaluated. ANY EVIDENCE OF POPLITEAL CYST: No. OTHER: No other significant finding. LEFT LEG COMMON FEMORAL AND FEMORAL: Normal phasicity, compression and augmentation. No visualized echogenic m aterial on davey scale. No defects on color images. POPLITEAL: Normal compression and augmentation. No visualized echogenic material on davey scale. No de fects on color images. CALF VESSELS: Normal compression and augmentation. No visualized echogenic material on davey scale. No defects on color images. GSV AND SSV: Normal compression. No visualized echogenic material on davey scale. No defects on color images. ANY DEEP VENOUS INSUFFICIENCY: Not evaluated. ANY EVIDENCE POPLITEAL CYST: No. OTHER: No other significant finding. IMPRESSION: NO EVIDENCE DVT OR SVT IN EITHER LEG. TECHNICAL DOCUMENTATION: JOB ID: [id number] [employer]- All Rights Reserved
--- NOTE | 2017-03-18 17:37 | RADIOLOGY REPORT (SQ) ---
EXAM DESCRIPTION: CHEST PA/LAT COMPLETED DATE/TIME: 03/18/2017 5:13 pm REASON FOR STUDY: copd COMPARISON: June 2016 EXAM PARAMETERS: NUMBER OF VIEWS: two views TECHNIQUE: Digital Frontal and Lateral radiographic views of the chest acquired. RADIATION DOSE: NA LIMITATIONS: none FINDINGS: LUNGS AND PLEURA: No opacities, masses or pneumothorax. No pleural effusion. There is a n onspecific prominence of interstitial markings. MEDIASTINUM AND HILAR STRUCTURES: No masses or contour abnormalities. HEART AND VASCULAR STRUCTURES: Heart normal size. No evidence for failure. BONES: No acute findings. HARDWARE: Port-A-Cath is identified with its tip the level of the superior vena cava. OTHER: No other significant finding. IMPRESSION: No significant interval change. No acute findings. Other findings as noted above TECHNICAL DOCUMENTATION: JOB ID: [id number] [employer]- All Rights Reserved
[2017-03-18] MEDS: CLONAZEPAM 1 MG TABLET PO SCH (21:08)
[2017-03-18] MEDS: MONTELUKAST SODIUM 10 MG TABLET PO SCH (21:09)
[2017-03-18] MEDS ORDERED: (PENDING PHARMACY ID) (Clonazepam [Klonopin] 0.5 MG) PO SCH (22:00)
[2017-03-19] MEDS: LANSOPRAZOLE 15 MG TAB.RAP.DR PO SCH ×2 (06:20→17:32)
[2017-03-19] MEDS: METRONIDAZOLE 500 MG TABLET PO SCH ×3 (06:21→22:11)
[2017-03-19 07:50] LABS: ABSOLUTE BASOPHILS # (AUTO) 0.1 10^3/uL (0.0-0.2); ABSOLUTE LYMPHOCYTES (AUTO) 1.5 10^3/uL (0.5-4.7); ABSOLUTE MONOCYTES (AUTO) 1.1 10^3/uL (0.1-1.4); ABSOLUTE NEUT (AUTO) 7.1 10^3/uL (1.7-8.2); BASOPHILS % (AUTO) 0.6 % (0-2); EOSINOPHILS % (AUTO) 0.3 % (0-6); HEMATOCRIT 46.1 % (36.0-47.0); HEMOGLOBIN 15.5 g/dL (12.0-15.5); HGB HCT DIFFERENCE 0.4; LYMPHOCYTES % (AUTO) 15.5 % (13-45); MEAN CORPUSCULAR HEMOGLOBIN 33.6 pg (27.0-33.4); MEAN CORPUSCULAR HGB CONC 33.6 g/dL (32.0-36.0); MEAN CORPUSCULAR VOLUME 100 fl (80-97); MONOCYTES % (AUTO) 11.2 % (3-13); RED BLOOD COUNT 4.62 10^6/uL (3.72-5.28); SEGMENTED NEUTROPHILS % (AUTO) 72.4 % (42-78); WHITE BLOOD COUNT 9.8 10^3/uL (4.0-10.5)
[2017-03-19 07:55] LABS: ANION GAP 9 (5-19); BLOOD UREA NITROGEN 12 mg/dL (7-20); CALCIUM 9.3 mg/dL (8.4-10.2); CARBON DIOXIDE 32 mmol/L (22-30); CHLORIDE 98 mmol/L (98-107); CREATININE RESULT 0.57 mg/dL (0.52-1.25); GLUCOSE 92 mg/dL (75-110); POTASSIUM 3.3 mmol/L (3.6-5.0); SODIUM 139.4 mmol/L (137-145)
[2017-03-19] MEDS: IPRATROPIUM/ALBUTEROL 0.5-2.5 MG/3 ML AMPUL NEB SCH ×3 (07:56→19:54)
--- NOTE | 2017-03-19 08:23 | PDOC PROGRESS REPORT ---
Subjective Progress Note for:: 03/19/17 Subjective:: Feeling a little better, still w/ abd pain, 2L paracentesis out yesterday, cyto pending. Diarrhea stopped over last 24 hrs. Cdiff neg. Physical Exam Vital Signs: Temp Pulse Resp BP Pulse Ox 97.7 F 85 18 113/60 96 03/19/17 03:06 03/19/17 08:00 03/19/17 08:00 03/19/17 03:06 03/19/17 08:00 Intake & Output 03/18/17 03/19/17 03/20/17 06:59 06:59 06:59 Weight 61 kg 61.3 kg General appearance: PRESENT: no acute distress, well-developed, well-nourished Head exam: PRESENT: atraumatic, normocephalic Eye exam: PRESENT: conjunctiva pink, EOMI, PERRLA. ABSENT: scleral icterus Ear exam: PRESENT: normal external ear exam Mouth exam: PRESENT: moist, tongue midline Neck exam: ABSENT: carotid bruit, JVD, lymphadenopathy, thyromegaly Respiratory exam: PRESENT: clear to auscultation jessica. ABSENT: rales, rhonchi, wheezes Cardiovascular exam: PRESENT: RRR. ABSENT: diastolic murmur, rubs, systolic murmur Pulses: PRESENT: normal dorsalis pedis pul Vascular exam: PRESENT: normal capillary refill GI/Abdominal exam: PRESENT: normal bowel sounds, soft. ABSENT: distended, guarding, mass, organolmegaly, rebound, tenderness Rectal exam: PRESENT: deferred Extremities exam: PRESENT: full ROM. ABSENT: calf tenderness, clubbing, pedal edema Neurological exam: PRESENT: alert, awake, oriented to person, oriented to place , oriented to time, oriented to situation, CN II-XII grossly intact. ABSENT: motor sensory deficit Psychiatric exam: PRESENT: appropriate affect, normal mood. ABSENT: homicidal ideation, suicidal ideation Skin exam: PRESENT: dry, intact, warm. ABSENT: cyanosis, rash Results Laboratory Results: 03/18/17 06:10 03/18/17 06:10 03/18/17 11:20 Fluid Type PERITONEAL Fluid Source ASCITES Fluid Color YELLOW Fluid Appearance CLOUDY Fluid Viscosity LIQUID Fluid WBC 105 Fluid RBC 97 Impressions: Acute Abdomen Series 03/17/17 14:26 IMPRESSION: 1. Nonspecific abdomen with no evidence of bowel obstruction. 2. Thoracic spondylosis and lumbar scoliosis and mild degenerative disc change. Abdomen/Pelvis CT 03/17/17 18:58 IMPRESSION: Multiple varying size relative low density areas throughout the liver suspicious for diffuse metastatic disease. There is intra-abdominal and pelvic ascitic fluid. Multiple scattered bony sclerotic lesions consistent with metastatic disease. Other findings as noted above Chest X-Ray 03/18/17 00:00 IMPRESSION: No significant interval change. No acute findings. Other findings as noted above Paracentesis Ultrasound 03/18/17 00:00 IMPRESSION: Successful ultrasound-guided diagnostic and therapeutic paracentesis Venous Doppler Study 03/18/17 00:00 IMPRESSION: NO EVIDENCE DVT OR SVT IN EITHER LEG. Assessment & Plan - Diagnosis (1) Abdominal pain Qualifiers: Abdominal location: generalized Qualified Code(s): R10.84 - Generalized abdominal pain Is this a current diagnosis for this admission?: Yes Plan: Multifactorial w/ colitis and ascitis, improving (2) Ascites Qualifiers: Ascites type: malignant Qualified Code(s): R18.0 - Malignant ascites Is this a current diagnosis for this admission?: Yes Plan: Likely malignant but awaiting cytology (3) Malignant neoplasm of breast, stage 4 Qualifiers: Laterality: unspecified laterality Qualified Code(s): C50.919 - Malignant neoplasm of unspecified site of unspecified female breast Is this a current diagnosis for this admission?: Yes Plan: Will plan further outpt eval, will need to restart rx as outpt.
[2017-03-19] MEDS ORDERED: NORMAL SALINE 1000 ML 1,000 ML IV PRN (08:33)
--- NOTE | 2017-03-19 08:59 | PDOC PROGRESS REPORT ---
Subjective Progress Note for:: 03/19/17 Subjective:: Patient is currently doing well. Patient underwent for the paracentesis and removed with 2 L of the fluids. Patient's denied any chest pain denied any shortness of the breath Physical Exam Vital Signs: Temp Pulse Resp BP Pulse Ox 97.7 F 85 18 113/60 96 03/19/17 03:06 03/19/17 08:00 03/19/17 08:00 03/19/17 03:06 03/19/17 08:00 Intake & Output 03/18/17 03/19/17 03/20/17 06:59 06:59 06:59 Weight 61 kg 61.3 kg General appearance: PRESENT: no acute distress, well-developed, well-nourished Head exam: PRESENT: atraumatic, normocephalic Eye exam: PRESENT: conjunctiva pink, EOMI, PERRLA. ABSENT: scleral icterus Ear exam: PRESENT: normal external ear exam Mouth exam: PRESENT: moist, tongue midline Neck exam: PRESENT: full ROM. ABSENT: carotid bruit, JVD, lymphadenopathy, thyromegaly Respiratory exam: PRESENT: clear to auscultation jessica Cardiovascular exam: PRESENT: RRR. ABSENT: diastolic murmur, rubs, systolic murmur Pulses: PRESENT: normal dorsalis pedis pul, +2 pedal pulses bilateral Vascular exam: PRESENT: normal capillary refill GI/Abdominal exam: PRESENT: normal bowel sounds, soft. ABSENT: distended, guarding, mass, organolmegaly, rebound, tenderness Rectal exam: PRESENT: deferred Neurological exam: PRESENT: alert, awake, oriented to person, oriented to place , oriented to time, oriented to situation, CN II-XII grossly intact. ABSENT: motor sensory deficit Psychiatric exam: PRESENT: appropriate affect, normal mood. ABSENT: homicidal ideation, suicidal ideation Skin exam: PRESENT: dry, intact, warm. ABSENT: cyanosis, rash Results Laboratory Results: 03/18/17 06:10 03/18/17 06:10 03/18/17 11:20 Fluid Type PERITONEAL Fluid Source ASCITES Fluid Color YELLOW Fluid Appearance CLOUDY Fluid Viscosity LIQUID Fluid WBC 105 Fluid RBC 97 Impressions: Acute Abdomen Series 03/17/17 14:26 IMPRESSION: 1. Nonspecific abdomen with no evidence of bowel obstruction. 2. Thoracic spondylosis and lumbar scoliosis and mild degenerative disc change. Abdomen/Pelvis CT 03/17/17 18:58 IMPRESSION: Multiple varying size relative low density areas throughout the liver suspicious for diffuse metastatic disease. There is intra-abdominal and pelvic ascitic fluid. Multiple scattered bony sclerotic lesions consistent with metastatic disease. Other findings as noted above Chest X-Ray 03/18/17 00:00 IMPRESSION: No significant interval change. No acute findings. Other findings as noted above Paracentesis Ultrasound 03/18/17 00:00 IMPRESSION: Successful ultrasound-guided diagnostic and therapeutic paracentesis Venous Doppler Study 03/18/17 00:00 IMPRESSION: NO EVIDENCE DVT OR SVT IN EITHER LEG. Assessment & Plan - Diagnosis (1) Abdominal pain Qualifiers: Abdominal location: generalized Qualified Code(s): R10.84 - Generalized abdominal pain Is this a current diagnosis for this admission?: Yes Plan: Currently all stableMost likely a stage IV breast cancer with liver metastases and new onset of ascites (2) Ascites Qualifiers: Ascites type: malignant Qualified Code(s): R18.0 - Malignant ascites Is this a current diagnosis for this admission?: Yes Plan: We wait for the cytology (3) Malignant neoplasm of breast, stage 4 Qualifiers: Laterality: unspecified laterality Qualified Code(s): C50.919 - Malignant neoplasm of unspecified site of unspecified female breast Is this a current diagnosis for this admission?: Yes Plan: Consult the oncology for further evaluation (4) Opiate dependence, continuous Is this a current diagnosis for this admission?: Yes (5) COPD (chronic obstructive pulmonary disease) Qualifiers: COPD type: unspecified COPD Qualified Code(s): J44.9 - Chronic obstructive pulmonary disease, unspecified Is this a current diagnosis for this admission?: Yes Plan: Continues to nebulizer treatment (6) Depression Qualifiers: Depression Type: major depressive disorder Is this a current diagnosis for this admission?: Yes - Time Time Spent with patient: 15-24 minutes Medications reviewed and adjusted accordingly: Yes Anticipated discharge: Home Within: within 24 hours - Inpatient Certification Medical Necessity: Need Close Monitoring Due to Risk of Patient Decompensation 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
[2017-03-19] MEDS: CLONAZEPAM 1 MG TABLET PO SCH ×2 (09:26→22:10)
[2017-03-19] MEDS: ENOXAPARIN SODIUM INJ 40 MG/0.4 ML DISP.SYRIN SUBCUT SCH (09:27)
[2017-03-19] MEDS: OXYCODONE HCL IR 5 MG TABLET PO PRN ×3 (09:37→23:14)
[2017-03-19] MEDS ORDERED: POTASSIUM CHLORIDE 10 MEQ TABLET.SA PO ONE (15:00)
[2017-03-19] MEDS ORDERED: POTASSIUM CHLORIDE 20 MEQ/15 ML UDCUP PO ONE (16:30)
[2017-03-19] MEDS: MONTELUKAST SODIUM 10 MG TABLET PO SCH (22:10)
[2017-03-20] MEDS: LANSOPRAZOLE 15 MG TAB.RAP.DR PO SCH ×2 (06:40→16:57)
[2017-03-20] MEDS: METRONIDAZOLE 500 MG TABLET PO SCH ×3 (06:40→22:04)
[2017-03-20] MEDS: OXYCODONE HCL IR 5 MG TABLET PO PRN ×2 (06:41→13:55)
[2017-03-20 07:56] LABS: ABSOLUTE BASOPHILS # (AUTO) 0.1 10^3/uL (0.0-0.2); ABSOLUTE LYMPHOCYTES (AUTO) 1.5 10^3/uL (0.5-4.7); ABSOLUTE MONOCYTES (AUTO) 1.5 10^3/uL (0.1-1.4); ABSOLUTE NEUT (AUTO) 9.7 10^3/uL (1.7-8.2); BASOPHILS % (AUTO) 0.4 % (0-2); HEMATOCRIT 46.9 % (36.0-47.0); HEMOGLOBIN 15.8 g/dL (12.0-15.5); HGB HCT DIFFERENCE 0.5; LYMPHOCYTES % (AUTO) 11.5 % (13-45); MEAN CORPUSCULAR HEMOGLOBIN 33.3 pg (27.0-33.4); MEAN CORPUSCULAR HGB CONC 33.8 g/dL (32.0-36.0); MEAN CORPUSCULAR VOLUME 99 fl (80-97); MONOCYTES % (AUTO) 12.1 % (3-13); RED BLOOD COUNT 4.76 10^6/uL (3.72-5.28); RED CELL DISTRIBUTION WIDTH 16.3 % (11.5-14.0); WHITE BLOOD COUNT 12.7 10^3/uL (4.0-10.5)
[2017-03-20 08:01] LABS: ANION GAP 8 (5-19); BLOOD UREA NITROGEN 10 mg/dL (7-20); CARBON DIOXIDE 32 mmol/L (22-30); CHLORIDE 98 mmol/L (98-107); CREATININE RESULT 0.58 mg/dL (0.52-1.25); GLUCOSE 99 mg/dL (75-110); POTASSIUM 3.7 mmol/L (3.6-5.0); SODIUM 138.4 mmol/L (137-145)
--- NOTE | 2017-03-20 08:43 | PDOC PROGRESS REPORT ---
Subjective Progress Note for:: 03/20/17 Subjective:: Still very weak and having abd pain, fevers low grade cont, did walk some w/ PT but they felt rehab needed Physical Exam Vital Signs: Temp Pulse Resp BP Pulse Ox 99.2 F 110 H 20 124/78 95 03/20/17 08:00 03/20/17 08:00 03/20/17 08:00 03/20/17 08:00 03/20/17 08:00 Intake & Output 03/19/17 03/20/17 03/21/17 06:59 06:59 06:59 Intake Total 140 Output Total 121 Balance 19 Weight 61.3 kg 60.2 kg General appearance: PRESENT: no acute distress, well-developed, well-nourished Head exam: PRESENT: atraumatic, normocephalic Eye exam: PRESENT: conjunctiva pink, EOMI, PERRLA. ABSENT: scleral icterus Ear exam: PRESENT: normal external ear exam Mouth exam: PRESENT: moist, tongue midline Neck exam: ABSENT: carotid bruit, JVD, lymphadenopathy, thyromegaly Respiratory exam: PRESENT: clear to auscultation jessica. ABSENT: rales, rhonchi, wheezes Cardiovascular exam: PRESENT: RRR. ABSENT: diastolic murmur, rubs, systolic murmur Pulses: PRESENT: normal dorsalis pedis pul Vascular exam: PRESENT: normal capillary refill GI/Abdominal exam: PRESENT: normal bowel sounds, soft. ABSENT: distended, guarding, mass, organolmegaly, rebound, tenderness Rectal exam: PRESENT: deferred Extremities exam: PRESENT: full ROM. ABSENT: calf tenderness, clubbing, pedal edema Neurological exam: PRESENT: alert, awake, oriented to person, oriented to place , oriented to time, oriented to situation, CN II-XII grossly intact. ABSENT: motor sensory deficit Psychiatric exam: PRESENT: appropriate affect, normal mood. ABSENT: homicidal ideation, suicidal ideation Skin exam: PRESENT: dry, intact, warm. ABSENT: cyanosis, rash Results Laboratory Results: 03/20/17 07:02 03/20/17 07:02 03/19/17 03/19/17 03/20/17 06:35 06:35 07:02 WBC 9.8 RBC 4.62 Hgb 15.5 Hct 46.1 MCV 100 H MCH 33.6 H MCHC 33.6 RDW 16.0 H Plt Count 124 L Seg Neutrophils % 72.4 Lymphocytes % 15.5 Monocytes % 11.2 Eosinophils % 0.3 Basophils % 0.6 Absolute Neutrophils 7.1 Absolute Lymphocytes 1.5 Absolute Monocytes 1.1 Absolute Eosinophils 0.0 Absolute Basophils 0.1 Sodium 139.4 138.4 Potassium 3.3 L 3.7 Chloride 98 98 Carbon Dioxide 32 H 32 H Anion Gap 9 8 BUN 12 10 Creatinine 0.57 0.58 Est GFR ( Amer) > 60 > 60 Est GFR (Non-Af Amer) > 60 > 60 Glucose 92 99 Calcium 9.3 9.0 03/20/17 07:02 WBC 12.7 H RBC 4.76 Hgb 15.8 H Hct 46.9 MCV 99 H MCH 33.3 MCHC 33.8 RDW 16.3 H Plt Count 111 L Seg Neutrophils % 76.0 Lymphocytes % 11.5 L Monocytes % 12.1 Eosinophils % 0.0 Basophils % 0.4 Absolute Neutrophils 9.7 H Absolute Lymphocytes 1.5 Absolute Monocytes 1.5 H Absolute Eosinophils 0.0 Absolute Basophils 0.1 Sodium Potassium Chloride Carbon Dioxide Anion Gap BUN Creatinine Est GFR ( Amer) Est GFR (Non-Af Amer) Glucose Calcium Impressions: Acute Abdomen Series 03/17/17 14:26 IMPRESSION: 1. Nonspecific abdomen with no evidence of bowel obstruction. 2. Thoracic spondylosis and lumbar scoliosis and mild degenerative disc change. Abdomen/Pelvis CT 03/17/17 18:58 IMPRESSION: Multiple varying size relative low density areas throughout the liver suspicious for diffuse metastatic disease. There is intra-abdominal and pelvic ascitic fluid. Multiple scattered bony sclerotic lesions consistent with metastatic disease. Other findings as noted above Chest X-Ray 03/18/17 00:00 IMPRESSION: No significant interval change. No acute findings. Other findings as noted above Paracentesis Ultrasound 03/18/17 00:00 IMPRESSION: Successful ultrasound-guided diagnostic and therapeutic paracentesis Venous Doppler Study 03/18/17 00:00 IMPRESSION: NO EVIDENCE DVT OR SVT IN EITHER LEG. Assessment & Plan - Diagnosis (1) Abdominal pain Qualifiers: Abdominal location: generalized Qualified Code(s): R10.84 - Generalized abdominal pain Is this a current diagnosis for this admission?: Yes Plan: Spoke w/ DR Malave, he is worried about SBP, agree w/ rocephin (2) Ascites Qualifiers: Ascites type: malignant Qualified Code(s): R18.0 - Malignant ascites Is this a current diagnosis for this admission?: Yes Plan: awaiting cytology (3) Malignant neoplasm of breast, stage 4 Qualifiers: Laterality: unspecified laterality Qualified Code(s): C50.919 - Malignant neoplasm of unspecified site of unspecified female breast Is this a current diagnosis for this admission?: Yes Plan: Overall seems stable but awaiting ascitis analysis.
[2017-03-20] MEDS: IPRATROPIUM/ALBUTEROL 0.5-2.5 MG/3 ML AMPUL NEB SCH ×3 (09:05→20:16)
[2017-03-20] MEDS: CLONAZEPAM 1 MG TABLET PO SCH ×2 (09:39→22:04)
[2017-03-20] MEDS: ENOXAPARIN SODIUM INJ 40 MG/0.4 ML DISP.SYRIN SUBCUT SCH (09:39)
[2017-03-20] MEDS ORDERED: CEFTRIAXONE 1 GM/D5W RTU 1 GM/50 ML RTUPB IV SCH (10:00)
[2017-03-20] MEDS ORDERED: CIPROFLOXACIN 400 MG/D5W RTU 400 MG/200 ML RTUPB IV ONE (11:30)
--- NOTE | 2017-03-20 13:41 | PDOC PROGRESS REPORT ---
Subjective Progress Note for:: 03/20/17 Subjective:: Patient is currently doing fair. Patient still very weak denied any chest pain denied any shortness of the breath. Patient still running a low-grade fever Patient's chest x-ray is stable and will concern about SBP and the patient's cannot take the Rocephin will start the patient on the Cipro and will ask the paracentesis for the fluid culture The patient have a fluid culture was drawn but was on the nonsteroidal container so unable to get the culture Physical Exam Vital Signs: Temp Pulse Resp BP Pulse Ox 99.9 F 101 H 16 114/69 96 03/20/17 11:31 03/20/17 11:31 03/20/17 11:31 03/20/17 11:31 03/20/17 11:31 Intake & Output 03/19/17 03/20/17 03/21/17 06:59 06:59 06:59 Intake Total 140 Output Total 121 Balance 19 Weight 61.3 kg 60.2 kg General appearance: PRESENT: no acute distress, well-developed, well-nourished Head exam: PRESENT: atraumatic, normocephalic Eye exam: PRESENT: conjunctiva pink, EOMI, PERRLA. ABSENT: scleral icterus Ear exam: PRESENT: normal external ear exam Mouth exam: PRESENT: moist, tongue midline Neck exam: PRESENT: full ROM. ABSENT: carotid bruit, JVD, lymphadenopathy, thyromegaly Respiratory exam: PRESENT: clear to auscultation jessica Cardiovascular exam: PRESENT: RRR. ABSENT: diastolic murmur, rubs, systolic murmur Pulses: PRESENT: normal dorsalis pedis pul, +2 pedal pulses bilateral Vascular exam: PRESENT: normal capillary refill GI/Abdominal exam: PRESENT: normal bowel sounds, soft. ABSENT: distended, guarding, mass, organolmegaly, rebound, tenderness Rectal exam: PRESENT: deferred Neurological exam: PRESENT: alert, awake, oriented to person, oriented to place , oriented to time, oriented to situation, CN II-XII grossly intact. ABSENT: motor sensory deficit Psychiatric exam: PRESENT: appropriate affect, normal mood. ABSENT: homicidal ideation, suicidal ideation Skin exam: PRESENT: dry, intact, warm. ABSENT: cyanosis, rash Results Laboratory Results: 03/20/17 07:02 03/20/17 07:02 03/20/17 03/20/17 07:02 07:02 WBC 12.7 H RBC 4.76 Hgb 15.8 H Hct 46.9 MCV 99 H MCH 33.3 MCHC 33.8 RDW 16.3 H Plt Count 111 L Seg Neutrophils % 76.0 Lymphocytes % 11.5 L Monocytes % 12.1 Eosinophils % 0.0 Basophils % 0.4 Absolute Neutrophils 9.7 H Absolute Lymphocytes 1.5 Absolute Monocytes 1.5 H Absolute Eosinophils 0.0 Absolute Basophils 0.1 Sodium 138.4 Potassium 3.7 Chloride 98 Carbon Dioxide 32 H Anion Gap 8 BUN 10 Creatinine 0.58 Est GFR ( Amer) > 60 Est GFR (Non-Af Amer) > 60 Glucose 99 Calcium 9.0 03/18/17 16:00 Clean Catch Midstream Urine Culture - Final NO GROWTH 2 DAYS Impressions: Acute Abdomen Series 03/17/17 14:26 IMPRESSION: 1. Nonspecific abdomen with no evidence of bowel obstruction. 2. Thoracic spondylosis and lumbar scoliosis and mild degenerative disc change. Abdomen/Pelvis CT 03/17/17 18:58 IMPRESSION: Multiple varying size relative low density areas throughout the liver suspicious for diffuse metastatic disease. There is intra-abdominal and pelvic ascitic fluid. Multiple scattered bony sclerotic lesions consistent with metastatic disease. Other findings as noted above Paracentesis Ultrasound 03/18/17 00:00 IMPRESSION: Successful ultrasound-guided diagnostic and therapeutic paracentesis Venous Doppler Study 03/18/17 00:00 IMPRESSION: NO EVIDENCE DVT OR SVT IN EITHER LEG. Assessment & Plan - Diagnosis (1) Abdominal pain Qualifiers: Abdominal location: generalized Qualified Code(s): R10.84 - Generalized abdominal pain Is this a current diagnosis for this admission?: Yes Plan: We will start the patient on IV Cipro and continues to Flagyl and will get the other fluid culture to rule out SBP (2) Ascites Qualifiers: Ascites type: malignant Qualified Code(s): R18.0 - Malignant ascites Is this a current diagnosis for this admission?: Yes Plan: We wait for the cytology (3) Malignant neoplasm of breast, stage 4 Qualifiers: Laterality: unspecified laterality Qualified Code(s): C50.919 - Malignant neoplasm of unspecified site of unspecified female breast Is this a current diagnosis for this admission?: Yes Plan: Consult the oncology for further evaluation (4) Opiate dependence, continuous Is this a current diagnosis for this admission?: Yes (5) COPD (chronic obstructive pulmonary disease) Qualifiers: COPD type: unspecified COPD Qualified Code(s): J44.9 - Chronic obstructive pulmonary disease, unspecified Is this a current diagnosis for this admission?: Yes Plan: Continues to nebulizer treatment (6) Depression Qualifiers: Depression Type: major depressive disorder Is this a current diagnosis for this admission?: Yes - Time Time Spent with patient: 15-24 minutes Medications reviewed and adjusted accordingly: Yes Anticipated discharge: SNF Within: Other - Inpatient Certification Medical Necessity: Need Close Monitoring Due to Risk of Patient Decompensation, Need for IV Antibiotics 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
[2017-03-20] MEDS ORDERED: FENTANYL 12 MCG/HR PATCH.TD72 TD SCH (22:00)
[2017-03-20] MEDS: MONTELUKAST SODIUM 10 MG TABLET PO SCH (22:04)
[2017-03-20] MEDS: CIPROFLOXACIN 400 MG/D5W RTU 400 MG/200 ML RTUPB IV SCH (22:05)
[2017-03-21] MEDS: OXYCODONE HCL IR 5 MG TABLET PO PRN ×3 (02:44→15:13)
[2017-03-21] MEDS: METRONIDAZOLE 500 MG TABLET PO SCH ×3 (05:09→21:52)
[2017-03-21] MEDS: LANSOPRAZOLE 15 MG TAB.RAP.DR PO SCH ×2 (05:09→17:15)
[2017-03-21 06:49] LABS: PARTIAL THROMBOPLASTIN TIME 43.4 SEC (23.5-35.8); PROTHROMBIN TIME 21.3 SEC (11.4-15.4)
[2017-03-21 07:01] LABS: ANION GAP 8 (5-19); BLOOD UREA NITROGEN 12 mg/dL (7-20); CALCIUM 8.5 mg/dL (8.4-10.2); CARBON DIOXIDE 31 mmol/L (22-30); CHLORIDE 97 mmol/L (98-107); CREATININE RESULT 0.61 mg/dL (0.52-1.25); GLUCOSE 90 mg/dL (75-110); POTASSIUM 3.3 mmol/L (3.6-5.0); SODIUM 135.8 mmol/L (137-145)
[2017-03-21] MEDS: IPRATROPIUM/ALBUTEROL 0.5-2.5 MG/3 ML AMPUL NEB SCH ×3 (08:15→20:01)
--- NOTE | 2017-03-21 08:56 | PDOC PROGRESS REPORT ---
Subjective Progress Note for:: 03/21/17 Subjective:: Today had long discussion w/ family >35 min, ascitis fluid neg, discussed code status and recommended DNR but currently full code. Paracentesis planned today Physical Exam Vital Signs: Temp Pulse Resp BP Pulse Ox 98.7 F 102 H 20 118/70 93 03/21/17 08:12 03/21/17 08:15 03/21/17 08:15 03/21/17 08:12 03/21/17 08:15 Intake & Output 03/20/17 03/21/17 03/22/17 06:59 06:59 06:59 Intake Total 140 880 Output Total 121 125 Balance 19 755 Weight 60.2 kg 61.4 kg General appearance: PRESENT: no acute distress, well-developed, well-nourished Head exam: PRESENT: atraumatic, normocephalic Eye exam: PRESENT: conjunctiva pink, EOMI, PERRLA. ABSENT: scleral icterus Ear exam: PRESENT: normal external ear exam Mouth exam: PRESENT: moist, tongue midline Neck exam: ABSENT: carotid bruit, JVD, lymphadenopathy, thyromegaly Respiratory exam: PRESENT: clear to auscultation jessica. ABSENT: rales, rhonchi, wheezes Cardiovascular exam: PRESENT: RRR. ABSENT: diastolic murmur, rubs, systolic murmur Pulses: PRESENT: normal dorsalis pedis pul Vascular exam: PRESENT: normal capillary refill GI/Abdominal exam: PRESENT: normal bowel sounds, soft. ABSENT: distended, guarding, mass, organolmegaly, rebound, tenderness Rectal exam: PRESENT: deferred Extremities exam: PRESENT: full ROM. ABSENT: calf tenderness, clubbing, pedal edema Neurological exam: PRESENT: alert, awake, oriented to person, oriented to place , oriented to time, oriented to situation, CN II-XII grossly intact. ABSENT: motor sensory deficit Psychiatric exam: PRESENT: appropriate affect, normal mood. ABSENT: homicidal ideation, suicidal ideation Skin exam: PRESENT: dry, intact, warm. ABSENT: cyanosis, rash Results Laboratory Results: 03/20/17 07:02 03/21/17 06:04 03/21/17 06:04 Sodium 135.8 L Potassium 3.3 L Chloride 97 L Carbon Dioxide 31 H Anion Gap 8 BUN 12 Creatinine 0.61 Est GFR ( Amer) > 60 Est GFR (Non-Af Amer) > 60 Glucose 90 Calcium 8.5 03/18/17 16:00 Clean Catch Midstream Urine Culture - Final NO GROWTH 2 DAYS Impressions: Acute Abdomen Series 03/17/17 14:26 IMPRESSION: 1. Nonspecific abdomen with no evidence of bowel obstruction. 2. Thoracic spondylosis and lumbar scoliosis and mild degenerative disc change. Abdomen/Pelvis CT 03/17/17 18:58 IMPRESSION: Multiple varying size relative low density areas throughout the liver suspicious for diffuse metastatic disease. There is intra-abdominal and pelvic ascitic fluid. Multiple scattered bony sclerotic lesions consistent with metastatic disease. Other findings as noted above Paracentesis Ultrasound 03/18/17 00:00 IMPRESSION: Successful ultrasound-guided diagnostic and therapeutic paracentesis Venous Doppler Study 03/18/17 00:00 IMPRESSION: NO EVIDENCE DVT OR SVT IN EITHER LEG. Assessment & Plan - Diagnosis (1) Abdominal pain Qualifiers: Abdominal location: generalized Qualified Code(s): R10.84 - Generalized abdominal pain Is this a current diagnosis for this admission?: Yes Plan: multifactorial, maybe SBP, para today for culture, cont' abx and pain meds (2) Ascites Qualifiers: Ascites type: due to alcoholic cirrhosis Qualified Code(s): K70.31 - Alcoholic cirrhosis of liver with ascites Is this a current diagnosis for this admission?: Yes Plan: May not be malignant, pt does have heavy etoh hx in past, had 19 hx of use but has quit for >20 yrs so maybe cirrhosis related. (3) Malignant neoplasm of breast, stage 4 Qualifiers: Laterality: unspecified laterality Qualified Code(s): C50.919 - Malignant neoplasm of unspecified site of unspecified female breast Is this a current diagnosis for this admission?: Yes Plan: Seems overall stable. But pt certainly not candidate for chemo at present. Discussed with family at length. - Time Time Spent with patient: 35 or more minutes Critical Time spent with patient: 35 or more minutes
[2017-03-21] MEDS: ENOXAPARIN SODIUM INJ 40 MG/0.4 ML DISP.SYRIN SUBCUT SCH (09:10)
[2017-03-21] MEDS ORDERED: POTASSIUM CHLORIDE 10 MEQ TABLET.SA PO ONE (09:30)
[2017-03-21 10:24] LABS: FLUID TYPE PERITONEAL
[2017-03-21 10:25] LABS: FLUID APPEARANCE CLEAR
[2017-03-21] MEDS: CLONAZEPAM 1 MG TABLET PO SCH ×2 (10:28→21:50)
[2017-03-21] MEDS: CIPROFLOXACIN 400 MG/D5W RTU 400 MG/200 ML RTUPB IV SCH ×2 (10:32→21:51)
[2017-03-21 10:54] LABS: FLUID RBC AVERAGE 803.5; FLUID RBC SIDE 1 842; FLUID RBC SIDE 2 765
[2017-03-21 10:55] LABS: FLUID RBC DILUENT USED NONE USED; FLUID RBC DILUTION FACTOR 1; TOTAL RBC SQUARES COUNTED FLD 225
--- NOTE | 2017-03-21 12:35 | RADIOLOGY REPORT (SQ) ---
EXAM DESCRIPTION: U/S ABD PARACENTESIS COMPLETED DATE/TIME: 03/21/2017 10:02 am REASON FOR STUDY: ascites, abdominal pain, evaluate for spontaneous bacterial peritonitis COMPARISON 03/18/2017 LIMITATIONS: None. PROCEDURE: After obtaining informed consent, the patient was brought to the ultrasound suite. The p rocedure was performed with the patient on a gurney. Ultrasound was used to identify a prominent poc ket of ascites right lower quadrant. An appropriate access site was selected. The patient was prepp ed and draped in usual sterile fashion. The access site was anesthetized with 5 mL 1% lidocaine. A [id number] needle was advanced into the fluid. After aspiration of fluid the needle, the tobin ter was advanced off the needle into the fluid. A total of 2000 mL of clear straw-colored fluid was removed. The patient tolerated the procedure well left the department in satisfactory condition. Fluid was sent to the lab for testing as per Dr. Malave. IMPRESSION: Successful ultrasound-guided paracentesis, specimens sent for testing as per Dr. Malave COMMENT: Patient medication list reviewed: Yes- Quality ID# [id number]:Eligible professional attests to doc umenting in the medical record they obtained, updated, or reviewed the patient's current medications. Quality ID #[id number]: The patient was prepped and draped using maximum sterile barrier technique including cap, mask, sterile gown, sterile gloves, a large sterile sheet, hand hygiene, and 2% Chlorhexidine fo r cutaneous antisepsis. When ultrasound is used, sterile ultrasound techniques are followed requiring sterile gel and sterile probes. Quality ID #[id number]: Final reports for procedures using fluoroscopy that document radiation exposure ragini meera, or exposure time and number of fluorographic images (if radiation exposure indices are not avail able) TECHNICAL DOCUMENTATION: JOB ID: [id number] [employer]- All Rights Reserved
--- NOTE | 2017-03-21 14:39 | PDOC PROGRESS REPORT ---
Subjective Progress Note for:: 03/21/17 Subjective:: Patient is currently doing fair. Patient underwent for the further paracentesis and another 2 L of the fluid was removed and the stent will send the fluid for the cultures. Patient's denied any chest pain denied any shortness of the breath. Physical Exam Vital Signs: Temp Pulse Resp BP Pulse Ox 97.9 F 118 H 16 91/54 L 94 03/21/17 11:07 03/21/17 11:07 03/21/17 11:07 03/21/17 11:07 03/21/17 11:07 Intake & Output 03/20/17 03/21/17 03/22/17 06:59 06:59 06:59 Intake Total 140 880 Output Total 121 125 Balance 19 755 Weight 60.2 kg 61.4 kg General appearance: PRESENT: no acute distress, well-developed, well-nourished Head exam: PRESENT: atraumatic, normocephalic Eye exam: PRESENT: conjunctiva pink, EOMI, PERRLA. ABSENT: scleral icterus Ear exam: PRESENT: normal external ear exam Mouth exam: PRESENT: moist, tongue midline Neck exam: PRESENT: full ROM. ABSENT: carotid bruit, JVD, lymphadenopathy, thyromegaly Respiratory exam: PRESENT: clear to auscultation jessica Cardiovascular exam: PRESENT: RRR. ABSENT: diastolic murmur, rubs, systolic murmur Pulses: PRESENT: normal dorsalis pedis pul, +2 pedal pulses bilateral Vascular exam: PRESENT: normal capillary refill GI/Abdominal exam: PRESENT: normal bowel sounds, soft. ABSENT: distended, guarding, mass, organolmegaly, rebound, tenderness Rectal exam: PRESENT: deferred Neurological exam: PRESENT: alert, awake, oriented to person, oriented to place , oriented to time, oriented to situation, CN II-XII grossly intact. ABSENT: motor sensory deficit Psychiatric exam: PRESENT: appropriate affect, normal mood. ABSENT: homicidal ideation, suicidal ideation Skin exam: PRESENT: dry, intact, warm. ABSENT: cyanosis, rash Results Laboratory Results: 03/20/17 07:02 03/21/17 06:04 03/21/17 03/21/17 06:04 09:38 Sodium 135.8 L Potassium 3.3 L Chloride 97 L Carbon Dioxide 31 H Anion Gap 8 BUN 12 Creatinine 0.61 Est GFR ( Amer) > 60 Est GFR (Non-Af Amer) > 60 Glucose 90 Calcium 8.5 Fluid Type PERITONEAL Fluid Source ASCITES Fluid Color YELLOW Fluid Appearance CLEAR Fluid Viscosity LIQUID Fluid WBC 69 Fluid RBC 892 03/18/17 16:00 Clean Catch Midstream Urine Culture - Final NO GROWTH 2 DAYS Impressions: Acute Abdomen Series 03/17/17 14:26 IMPRESSION: 1. Nonspecific abdomen with no evidence of bowel obstruction. 2. Thoracic spondylosis and lumbar scoliosis and mild degenerative disc change. Abdomen/Pelvis CT 03/17/17 18:58 IMPRESSION: Multiple varying size relative low density areas throughout the liver suspicious for diffuse metastatic disease. There is intra-abdominal and pelvic ascitic fluid. Multiple scattered bony sclerotic lesions consistent with metastatic disease. Other findings as noted above Venous Doppler Study 03/18/17 00:00 IMPRESSION: NO EVIDENCE DVT OR SVT IN EITHER LEG. Paracentesis Ultrasound 03/21/17 13:28 IMPRESSION: Successful ultrasound-guided paracentesis, specimens sent for testing as per Dr. Malave Assessment & Plan - Diagnosis (1) Abdominal pain Qualifiers: Abdominal location: generalized Qualified Code(s): R10.84 - Generalized abdominal pain Is this a current diagnosis for this admission?: Yes Plan: Continues IV antibiotic (2) Ascites Qualifiers: Ascites type: due to alcoholic cirrhosis Qualified Code(s): K70.31 - Alcoholic cirrhosis of liver with ascites Is this a current diagnosis for this admission?: Yes Plan: Status post paracentesis (3) Malignant neoplasm of breast, stage 4 Qualifiers: Laterality: unspecified laterality Qualified Code(s): C50.919 - Malignant neoplasm of unspecified site of unspecified female breast Is this a current diagnosis for this admission?: Yes Plan: Consult the oncology for further evaluation (4) Opiate dependence, continuous Is this a current diagnosis for this admission?: Yes (5) COPD (chronic obstructive pulmonary disease) Qualifiers: COPD type: unspecified COPD Qualified Code(s): J44.9 - Chronic obstructive pulmonary disease, unspecified Is this a current diagnosis for this admission?: Yes Plan: Continues to nebulizer treatment (6) Depression Qualifiers: Depression Type: major depressive disorder Is this a current diagnosis for this admission?: Yes - Time Time Spent with patient: 15-24 minutes Medications reviewed and adjusted accordingly: Yes Anticipated discharge: SNF Within: Other - Inpatient Certification Medical Necessity: Need Close Monitoring Due to Risk of Patient Decompensation 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
--- NOTE | 2017-03-21 15:20 | RADIOLOGY REPORT (SQ) ---
EXAM DESCRIPTION: CHEST PA/LAT COMPLETED DATE/TIME: 03/20/2017 8:51 am REASON FOR STUDY: Obstructive lung disease, difficulty breathing COMPARISON: 03/18/2017, 06/06/[address] chest 11/28/2016 TECHNIQUE: PA and lateral chest, 03/20/2017, 0847 hours LIMITATIONS: None FINDINGS: No focal infiltrates. No pleural effusion. No pneumothorax. Stable moderate cardiomegaly. Prominent central pulmonary arteries. Unchanged right-sided permanent central line with the tip in the superior vena cava. Bones are osteoporotic with stable mid thoracic compression deformities. IMPRESSION: No acute infiltrates.
[2017-03-21] MEDS ORDERED: NORMAL SALINE 1000 ML 1,000 ML IV PRN (20:35)
[2017-03-21] MEDS: MONTELUKAST SODIUM 10 MG TABLET PO SCH (21:51)
[2017-03-21] MEDS ORDERED: FENTANYL 75 MCG/HR PATCH.TD72 TD SCH (22:00)
[2017-03-21 23:09] LABS: ARTERIAL BLOOD O2 SATURATION 93.8 % (94-98)
[2017-03-21 23:21] LABS: ABSOLUTE BASOPHILS # (AUTO) 0.1 10^3/uL (0.0-0.2); ABSOLUTE LYMPHOCYTES (AUTO) 0.9 10^3/uL (0.5-4.7); ABSOLUTE MONOCYTES (AUTO) 1.1 10^3/uL (0.1-1.4); ABSOLUTE NEUT (AUTO) 7.9 10^3/uL (1.7-8.2); ANION GAP 6 (5-19); BASOPHILS % (AUTO) 0.7 % (0-2); BLOOD UREA NITROGEN 15 mg/dL (7-20); CALCIUM 8.7 mg/dL (8.4-10.2); CARBON DIOXIDE 32 mmol/L (22-30); CHLORIDE 95 mmol/L (98-107); EOSINOPHILS % (AUTO) 0.1 % (0-6); GLUCOSE 115 mg/dL (75-110); HEMATOCRIT 45.2 % (36.0-47.0); HEMOGLOBIN 15.2 g/dL (12.0-15.5); HGB HCT DIFFERENCE 0.4; LYMPHOCYTES % (AUTO) 9.3 % (13-45); MEAN CORPUSCULAR HEMOGLOBIN 33.5 pg (27.0-33.4); MEAN CORPUSCULAR HGB CONC 33.7 g/dL (32.0-36.0); MEAN CORPUSCULAR VOLUME 100 fl (80-97); MONOCYTES % (AUTO) 10.9 % (3-13); POTASSIUM 3.8 mmol/L (3.6-5.0); RED BLOOD COUNT 4.55 10^6/uL (3.72-5.28); RED CELL DISTRIBUTION WIDTH 16.6 % (11.5-14.0); SODIUM 132.8 mmol/L (137-145)
[2017-03-22 04:10] LABS: ABSOLUTE BASOPHILS # (AUTO) 0.1 10^3/uL (0.0-0.2); ABSOLUTE MONOCYTES (AUTO) 1.1 10^3/uL (0.1-1.4); ABSOLUTE NEUT (AUTO) 7.9 10^3/uL (1.7-8.2); BASOPHILS % (AUTO) 0.9 % (0-2); EOSINOPHILS % (AUTO) 0.1 % (0-6); HEMATOCRIT 44.6 % (36.0-47.0); HEMOGLOBIN 15.1 g/dL (12.0-15.5); HGB HCT DIFFERENCE 0.7; LYMPHOCYTES % (AUTO) 10.1 % (13-45); MEAN CORPUSCULAR HEMOGLOBIN 33.6 pg (27.0-33.4); MEAN CORPUSCULAR HGB CONC 33.9 g/dL (32.0-36.0); MEAN CORPUSCULAR VOLUME 99 fl (80-97); MONOCYTES % (AUTO) 10.5 % (3-13); RED CELL DISTRIBUTION WIDTH 16.3 % (11.5-14.0); SEGMENTED NEUTROPHILS % (AUTO) 78.4 % (42-78)
[2017-03-22 04:18] LABS: ANION GAP 7 (5-19); BLOOD UREA NITROGEN 16 mg/dL (7-20); CALCIUM 8.4 mg/dL (8.4-10.2); CARBON DIOXIDE 29 mmol/L (22-30); CHLORIDE 97 mmol/L (98-107); CREATININE RESULT 0.78 mg/dL (0.52-1.25); GLUCOSE 96 mg/dL (75-110); SODIUM 132.7 mmol/L (137-145)
--- NOTE | 2017-03-22 05:08 | RADIOLOGY REPORT (SQ) ---
EXAM DESCRIPTION: CT ABD/PELVIS NO ORAL OR IV COMPLETED DATE/TIME: 03/21/2017 11:41 pm REASON FOR STUDY: abd pain COMPARISON: 03/17/2017. 06/06/2016. The TECHNIQUE: CT scan of the abdomen and pelvis performed without intravenous or oral contrast. Images reviewed with lung, soft tissue, and bone windows. Reconstructed coronal and sagittal MPR images revi ewed. All images stored on PACS. All CT scanners at this facility use dose modulation, iterative reconstruction, and/or weight based d osing when appropriate to reduce radiation dose to as low as reasonably achievable (ALARA). [facility]: Dose Right [facility]: CareDose [facility]: Dose Right [facility]: Teradose 4D [facility]: Smart [employer] RADIATION DOSE: Up-to-date CT equipment and radiation dose reduction techniques were employed. CTDIv ol: 11.5 mGy. DLP: 583 mGy-cm.mGy. LIMITATIONS: Arm positioning artifact. FINDINGS: LOWER CHEST: Moderate emphysematous lung bases. Small-moderate bilateral pleural effusion s. Coronary arterial calcification. NON-CONTRASTED LIVER, SPLEEN, ADRENALS: Evaluation limited by lack of IV contrast. Macro nodular larry er lower contour and extensive relatively low-attenuation lesions throughout the liver consistent wit h history of metastatic disease. PANCREAS: Severe atrophy of the pancreas. GALLBLADDER: A Small para cholecystic fluid. RIGHT KIDNEY AND URETER: No suspicious masses. Assessment limited by lack of IV contrast. No signif icant calcifications. No hydronephrosis or hydroureter. 1.8 cm likely benign cyst of the right kid swapnil. LEFT KIDNEY AND URETER: No suspicious masses. Assessment limited by lack of IV contrast. No signifi cant calcifications. No hydronephrosis or hydroureter. AORTA AND RETROPERITONEUM: 3.1 diameter abdominal aortic aneurysm. No retroperitoneal masses or glory opathy. BOWEL AND PERITONEAL CAVITY: No obvious masses or inflammatory changes. Small-moderate ascites and m oderate free pelvic fluid. APPENDIX: Normal. PELVIS, BLADDER, AND ABDOMINAL WALL:No abnormal masses. Bladder normal. BONES: Numerous sclerotic lesions scattered through the pelvis consistent with history of metastatic disease. Small chronic deformity of the left ischium. OTHER: No other significant finding. IMPRESSION: New small bilateral pleural effusions. Otherwise, no significant interval change includ ing extensive likely metastatic lesions of the liver and skeleton. TECHNICAL DOCUMENTATION: JOB ID: [id number] Quality ID # [id number]: Final reports with documentation of one or more dose reduction techniques (e.g., Au tomated exposure control, adjustment of the mA and/or kV according to patient size, use of iterative reconstruction technique) 2010 [employer]- All Rights Reserved
[2017-03-22] MEDS: METRONIDAZOLE 500 MG TABLET PO SCH ×3 (05:49→21:38)
[2017-03-22] MEDS: LANSOPRAZOLE 15 MG TAB.RAP.DR PO SCH ×2 (05:49→17:02)
[2017-03-22] MEDS ORDERED: ALBUMIN HUMAN 50 ML IV SCH (08:52)
--- NOTE | 2017-03-22 08:55 | PDOC PROGRESS REPORT ---
Subjective Progress Note for:: 03/22/17 Subjective:: The patient was transferred to the ICU last night because of the patient's blood pressure was low. Patient's otherwise denied any chest pain denied any shortness of the breath denied any abdominal pain. Patient had a paracentesis done yesterday and 2000 mL of fluid was out and before that the patient's blood pressure was all stable and the patient have a CBC Chem-[address] scan done and is all stable Otherwise remained stable in the ICU right now Physical Exam Vital Signs: Temp Pulse Resp BP Pulse Ox 97.9 F 96 25 H 85/59 L 96 03/22/17 08:00 03/22/17 08:00 03/22/17 08:00 03/22/17 08:00 03/22/17 08:00 Intake & Output 03/21/17 03/22/17 03/23/17 06:59 06:59 06:59 Intake Total 884 Balance 884 Weight 60.8 kg General appearance: PRESENT: no acute distress, well-developed, well-nourished Head exam: PRESENT: atraumatic, normocephalic Eye exam: PRESENT: conjunctiva pink, EOMI, PERRLA. ABSENT: scleral icterus Ear exam: PRESENT: normal external ear exam Mouth exam: PRESENT: moist, tongue midline Neck exam: PRESENT: full ROM. ABSENT: carotid bruit, JVD, lymphadenopathy, thyromegaly Respiratory exam: PRESENT: clear to auscultation jessica Cardiovascular exam: PRESENT: RRR. ABSENT: diastolic murmur, rubs, systolic murmur Pulses: PRESENT: normal dorsalis pedis pul, +2 pedal pulses bilateral Vascular exam: PRESENT: normal capillary refill GI/Abdominal exam: PRESENT: normal bowel sounds, soft. ABSENT: distended, guarding, mass, organolmegaly, rebound, tenderness Rectal exam: PRESENT: deferred Neurological exam: PRESENT: alert, awake, oriented to person, oriented to place , oriented to time, oriented to situation, CN II-XII grossly intact. ABSENT: motor sensory deficit Psychiatric exam: PRESENT: appropriate affect, normal mood. ABSENT: homicidal ideation, suicidal ideation Skin exam: PRESENT: dry, intact, warm. ABSENT: cyanosis, rash Results Laboratory Results: 03/22/17 03:55 03/22/17 03:55 03/21/17 03/21/17 03/22/17 23:02 23:02 03:55 WBC 10.0 RBC 4.55 Hgb 15.2 Hct 45.2 MCV 100 H MCH 33.5 H MCHC 33.7 RDW 16.6 H Plt Count 95 L Seg Neutrophils % 79.0 H Lymphocytes % 9.3 L Monocytes % 10.9 Eosinophils % 0.1 Basophils % 0.7 Absolute Neutrophils 7.9 Absolute Lymphocytes 0.9 Absolute Monocytes 1.1 Absolute Eosinophils 0.0 Absolute Basophils 0.1 Sodium 132.8 L 132.7 L Potassium 3.8 4.0 Chloride 95 L 97 L Carbon Dioxide 32 H 29 Anion Gap 6 7 BUN 15 16 Creatinine 0.80 0.78 Est GFR ( Amer) > 60 > 60 Est GFR (Non-Af Amer) > 60 > 60 Glucose 115 H 96 Calcium 8.7 8.4 03/22/17 03:55 WBC 10.0 RBC 4.50 Hgb 15.1 Hct 44.6 MCV 99 H MCH 33.6 H MCHC 33.9 RDW 16.3 H Plt Count 100 L Seg Neutrophils % 78.4 H Lymphocytes % 10.1 L Monocytes % 10.5 Eosinophils % 0.1 Basophils % 0.9 Absolute Neutrophils 7.9 Absolute Lymphocytes 1.0 Absolute Monocytes 1.1 Absolute Eosinophils 0.0 Absolute Basophils 0.1 Sodium Potassium Chloride Carbon Dioxide Anion Gap BUN Creatinine Est GFR ( Amer) Est GFR (Non-Af Amer) Glucose Calcium Impressions: Acute Abdomen Series 03/17/17 14:26 IMPRESSION: 1. Nonspecific abdomen with no evidence of bowel obstruction. 2. Thoracic spondylosis and lumbar scoliosis and mild degenerative disc change. Venous Doppler Study 03/18/17 00:00 IMPRESSION: NO EVIDENCE DVT OR SVT IN EITHER LEG. Chest X-Ray 03/20/17 00:00 IMPRESSION: No acute infiltrates. Abdomen/Pelvis CT 03/21/17 00:00 IMPRESSION: New small bilateral pleural effusions. Otherwise, no significant interval change including extensive likely metastatic lesions of the liver and skeleton. Paracentesis Ultrasound 03/21/17 13:28 IMPRESSION: Successful ultrasound-guided paracentesis, specimens sent for testing as per Dr. Malave Assessment & Plan - Diagnosis (1) Abdominal pain Qualifiers: Abdominal location: generalized Qualified Code(s): R10.84 - Generalized abdominal pain Is this a current diagnosis for this admission?: Yes Plan: Continues IV antibiotic (2) Ascites Qualifiers: Ascites type: due to alcoholic cirrhosis Qualified Code(s): K70.31 - Alcoholic cirrhosis of liver with ascites Is this a current diagnosis for this admission?: Yes Plan: Status post paracentesis (3) Malignant neoplasm of breast, stage 4 Qualifiers: Laterality: unspecified laterality Qualified Code(s): C50.919 - Malignant neoplasm of unspecified site of unspecified female breast Is this a current diagnosis for this admission?: Yes Plan: Consult the oncology for further evaluation (4) Opiate dependence, continuous Is this a current diagnosis for this admission?: Yes (5) COPD (chronic obstructive pulmonary disease) Qualifiers: COPD type: unspecified COPD Qualified Code(s): J44.9 - Chronic obstructive pulmonary disease, unspecified Is this a current diagnosis for this admission?: Yes Plan: Continues to nebulizer treatment (6) Depression Qualifiers: Depression Type: major depressive disorder Is this a current diagnosis for this admission?: Yes (7) Hypotension Qualifiers: Hypotension type: unspecified hypotension type Qualified Code(s): I95.9 - Hypotension, unspecified Is this a current diagnosis for this admission?: Yes Plan: Most likely are due to the more fluid change will give her some albumin and continues IV fluid for another 12 hours and if he remains stable transferred to the [facility] back the 2D echocardiogram - Time Time Spent with patient: 15-24 minutes Medications reviewed and adjusted accordingly: Yes Anticipated discharge: Other Within: Other - Inpatient Certification Medical Necessity: Need For IV Fluids, Need for IV Antibiotics 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
[2017-03-22] MEDS: IPRATROPIUM/ALBUTEROL 0.5-2.5 MG/3 ML AMPUL NEB SCH ×3 (09:51→20:28)
[2017-03-22] MEDS: CLONAZEPAM 1 MG TABLET PO SCH ×2 (10:14→21:37)
[2017-03-22] MEDS: ENOXAPARIN SODIUM INJ 40 MG/0.4 ML DISP.SYRIN SUBCUT SCH (10:15)
[2017-03-22] MEDS: CIPROFLOXACIN 400 MG/D5W RTU 400 MG/200 ML RTUPB IV SCH ×2 (10:17→21:37)
--- NOTE | 2017-03-22 11:49 | PDOC PROGRESS REPORT ---
Subjective Progress Note for:: 03/22/17 Subjective:: Patient worsened overnight, increased shortness of breath, weakness Physical Exam Vital Signs: Temp Pulse Resp BP Pulse Ox 98.4 F 97 27 H 99/68 L 96 03/22/17 10:38 03/22/17 10:00 03/22/17 10:38 03/22/17 10:38 03/22/17 10:38 Intake & Output 03/21/17 03/22/17 03/23/17 06:59 06:59 06:59 Intake Total 884 Output Total 160 Balance 884 -160 Weight 60.8 kg General appearance: PRESENT: no acute distress, well-developed, well-nourished Head exam: PRESENT: atraumatic, normocephalic Eye exam: PRESENT: conjunctiva pink, EOMI, PERRLA. ABSENT: scleral icterus Ear exam: PRESENT: normal external ear exam Mouth exam: PRESENT: moist, tongue midline Neck exam: ABSENT: carotid bruit, JVD, lymphadenopathy, thyromegaly Respiratory exam: PRESENT: clear to auscultation jessica. ABSENT: rales, rhonchi, wheezes Cardiovascular exam: PRESENT: RRR. ABSENT: diastolic murmur, rubs, systolic murmur Pulses: PRESENT: normal dorsalis pedis pul Vascular exam: PRESENT: normal capillary refill GI/Abdominal exam: PRESENT: normal bowel sounds, soft. ABSENT: distended, guarding, mass, organolmegaly, rebound, tenderness Rectal exam: PRESENT: deferred Extremities exam: PRESENT: full ROM. ABSENT: calf tenderness, clubbing, pedal edema Neurological exam: PRESENT: alert, awake, oriented to person, oriented to place , oriented to time, oriented to situation, CN II-XII grossly intact. ABSENT: motor sensory deficit Psychiatric exam: PRESENT: appropriate affect, normal mood. ABSENT: homicidal ideation, suicidal ideation Skin exam: PRESENT: dry, intact, warm. ABSENT: cyanosis, rash Results Laboratory Results: 03/22/17 03:55 03/22/17 03:55 03/21/17 03/21/17 03/22/17 23:02 23:02 03:55 WBC 10.0 RBC 4.55 Hgb 15.2 Hct 45.2 MCV 100 H MCH 33.5 H MCHC 33.7 RDW 16.6 H Plt Count 95 L Seg Neutrophils % 79.0 H Lymphocytes % 9.3 L Monocytes % 10.9 Eosinophils % 0.1 Basophils % 0.7 Absolute Neutrophils 7.9 Absolute Lymphocytes 0.9 Absolute Monocytes 1.1 Absolute Eosinophils 0.0 Absolute Basophils 0.1 Sodium 132.8 L 132.7 L Potassium 3.8 4.0 Chloride 95 L 97 L Carbon Dioxide 32 H 29 Anion Gap 6 7 BUN 15 16 Creatinine 0.80 0.78 Est GFR ( Amer) > 60 > 60 Est GFR (Non-Af Amer) > 60 > 60 Glucose 115 H 96 Calcium 8.7 8.4 03/22/17 03:55 WBC 10.0 RBC 4.50 Hgb 15.1 Hct 44.6 MCV 99 H MCH 33.6 H MCHC 33.9 RDW 16.3 H Plt Count 100 L Seg Neutrophils % 78.4 H Lymphocytes % 10.1 L Monocytes % 10.5 Eosinophils % 0.1 Basophils % 0.9 Absolute Neutrophils 7.9 Absolute Lymphocytes 1.0 Absolute Monocytes 1.1 Absolute Eosinophils 0.0 Absolute Basophils 0.1 Sodium Potassium Chloride Carbon Dioxide Anion Gap BUN Creatinine Est GFR ( Amer) Est GFR (Non-Af Amer) Glucose Calcium Impressions: Acute Abdomen Series 03/17/17 14:26 IMPRESSION: 1. Nonspecific abdomen with no evidence of bowel obstruction. 2. Thoracic spondylosis and lumbar scoliosis and mild degenerative disc change. Venous Doppler Study 03/18/17 00:00 IMPRESSION: NO EVIDENCE DVT OR SVT IN EITHER LEG. Chest X-Ray 03/20/17 00:00 IMPRESSION: No acute infiltrates. Abdomen/Pelvis CT 03/21/17 00:00 IMPRESSION: New small bilateral pleural effusions. Otherwise, no significant interval change including extensive likely metastatic lesions of the liver and skeleton. Paracentesis Ultrasound 03/21/17 13:28 IMPRESSION: Successful ultrasound-guided paracentesis, specimens sent for testing as per Dr. Malave Assessment & Plan - Diagnosis (1) Abdominal pain Qualifiers: Abdominal location: generalized Qualified Code(s): R10.84 - Generalized abdominal pain Is this a current diagnosis for this admission?: Yes Plan: Repeat paracentesis done, better now, awaiting SBP workup (2) Ascites Qualifiers: Ascites type: due to alcoholic cirrhosis Qualified Code(s): K70.31 - Alcoholic cirrhosis of liver with ascites Is this a current diagnosis for this admission?: Yes Plan: Thus far no evidence of malignancy on ascites fluid analysis but may be more alcohol-related. (3) Malignant neoplasm of breast, stage 4 Qualifiers: Laterality: unspecified laterality Qualified Code(s): C50.919 - Malignant neoplasm of unspecified site of unspecified female breast Is this a current diagnosis for this admission?: Yes Plan: As noted previously probably not going to be a candidate for further therapy, ultimately she wants to go back to [place] to be with her family, her daughter talked about moving her there in about 2-3 weeks time so hopefully she can get stronger and do that. We would not initiate therapy here. - Time Time Spent with patient: 35 or more minutes Critical Time spent with patient: 35 or more minutes
[2017-03-22] MEDS ORDERED: ALBUMIN HUMAN 50 ML IV ONE (12:30)
[2017-03-22] MEDS: OXYCODONE HCL IR 5 MG TABLET PO PRN ×2 (14:37→18:57)
--- NOTE | 2017-03-22 14:59 | XCELERA REPORT ---
[address] [address] Transthoracic Echocardiogram Report Name: CASEY GARCIA Age: 71 yrs Gender: Female : 1945 Patient Status: Inpatient Patient Location: [address] [place] [address] Study Date: 03/22/2017 12:44 PM Height: 66 in Weight: 134 lb BSA: 1.7 m2 Procedure: A complete two-dimensional transthoracic echocardiogram was performed (2D, M-mode, spectral and color flow Doppler). The study was technically difficult with many images being suboptimal in quality. Reason For Study: hypotension Ordering Physician: JHON BEATTY Performed By: Terrence Kiser Interpretation Summary Left ventricular systolic function is low normal. Doppler measurements suggest pseudonormalized left ventricular relaxation, which is associated with grade II/IV or mild to moderate diastolic dysfunction There is borderline concentric left ventricular hypertrophy. The left ventricle is grossly normal size. Wall motion cannot be accurately commented on, but no definite regional wall motion abnormalities noted. The right ventricular systolic function is normal. The left atrium is mildly dilated. The right atrium is normal in size There is a trace amount of mitral regurgitation There is no mitral valve stenosis. There is a trace to mild amount of tricuspid regurgitation There is mild pulmonary hypertension by echo Right ventricular systolic pressure is estimated to be elevated at 30- 40mmHg. The aortic root is not well visualized. The inferior vena cava was not well visualized There is no pericardial effusion. MMode/2D Measurements & Calculations RVDd: 2.2 cm LVIDd: 4.4 cm FS: 27.0 % Ao root diam: 2.9 cm IVSd: 0.88 cm LVIDs: 3.2 cm EDV(Teich): 89.7 ml LVPWd: 0.88 cm ESV(Teich): 42.3 ml Ao root area: 6.4 cm2 EF(Teich): 52.9 % LA dimension: 4.3 cm Doppler Measurements & Calculations MV E max leonila: MV P1/2t max leonila: Ao V2 max: LV V1 max P.2 cm/sec 70.2 cm/sec 150.5 cm/sec 4.2 mmHg MV A max leonila: MV P1/2t: 59.1 msec Ao max PG: LV V1 max: 83.7 cm/sec 9.1 mmHg 102.2 cm/sec MV E/A: 0.84 MVA(P1/2t): 3.7 cm2 MV dec slope: 347.8 cm/sec2 PA V2 max: TR max leonila: RAP systole: 92.7 cm/sec 251.1 cm/sec 10.0 mmHg PA max PG: TR max P.3 mmHg 3.4 mmHg RVSP(TR): 35.3 mmHg Left Ventricle The left ventricle is grossly normal size. There is borderline concentric left ventricular hypertrophy. Left ventricular systolic function is low normal. Doppler measurements suggest pseudonormalized left ventricular relaxation, which is associated with grade II/IV or mild to moderate diastolic dysfunction. Wall motion cannot be accurately commented on, but no definite regional wall motion abnormalities noted. Right Ventricle The right ventricle is normal in size, thickness and function. The right ventricle appears to be hypertrophied. The right ventricular systolic function is normal. Atria The right atrium is normal in size. The left atrium is mildly dilated. Interarterial septum not well visualized and not well dopplered. Cannot comment on ASD/PFO presence. Mitral Valve There is mild mitral leaflet calcification. There is no mitral valve stenosis. There is a trace amount of mitral regurgitation. Aortic Valve The aortic valve is mildly calcified. There is no aortic valve stenosis. No aortic regurgitation is present. Tricuspid Valve The tricuspid valve is not well visualized secondary to technical limitations. There is no tricuspid stenosis. There is a trace to mild amount of tricuspid regurgitation. There is mild pulmonary hypertension by echo. Right ventricular systolic pressure is estimated to be elevated at 30-40mmHg. Pulmonic Valve The pulmonic valve is not well visualized. Great Vessels The aortic root is not well visualized. The inferior vena cava was not well visualized. Effusions There is no pericardial effusion. : JHON BEATTY > Neptali Martino
[2017-03-22] MEDS: MONTELUKAST SODIUM 10 MG TABLET PO SCH (21:38)
[2017-03-23 05:08] LABS: ABSOLUTE LYMPHOCYTES (AUTO) 1.1 10^3/uL (0.5-4.7); ABSOLUTE NEUT (AUTO) 6.8 10^3/uL (1.7-8.2); BASOPHILS % (AUTO) 0.5 % (0-2); EOSINOPHILS % (AUTO) 0.3 % (0-6); HEMATOCRIT 43.5 % (36.0-47.0); HEMOGLOBIN 14.5 g/dL (12.0-15.5); LYMPHOCYTES % (AUTO) 11.9 % (13-45); MEAN CORPUSCULAR HEMOGLOBIN 33.3 pg (27.0-33.4); MEAN CORPUSCULAR HGB CONC 33.4 g/dL (32.0-36.0); MEAN CORPUSCULAR VOLUME 100 fl (80-97); MONOCYTES % (AUTO) 10.8 % (3-13); RED BLOOD COUNT 4.35 10^6/uL (3.72-5.28); RED CELL DISTRIBUTION WIDTH 16.8 % (11.5-14.0); SEGMENTED NEUTROPHILS % (AUTO) 76.5 % (42-78); WHITE BLOOD COUNT 8.9 10^3/uL (4.0-10.5)
[2017-03-23 05:18] LABS: ANION GAP 8 (5-19); BLOOD UREA NITROGEN 19 mg/dL (7-20); CALCIUM 8.5 mg/dL (8.4-10.2); CARBON DIOXIDE 27 mmol/L (22-30); CHLORIDE 97 mmol/L (98-107); CREATININE RESULT 0.79 mg/dL (0.52-1.25); GLUCOSE 80 mg/dL (75-110); POTASSIUM 4.2 mmol/L (3.6-5.0); SODIUM 131.7 mmol/L (137-145)
[2017-03-23] MEDS: OXYCODONE HCL IR 5 MG TABLET PO PRN ×2 (05:31→16:24)
[2017-03-23] MEDS: METRONIDAZOLE 500 MG TABLET PO SCH ×3 (05:32→21:39)
[2017-03-23] MEDS: LANSOPRAZOLE 15 MG TAB.RAP.DR PO SCH ×2 (05:32→16:24)
[2017-03-23] MEDS: IPRATROPIUM/ALBUTEROL 0.5-2.5 MG/3 ML AMPUL NEB SCH ×3 (07:48→20:04)
--- NOTE | 2017-03-23 09:42 | PDOC PROGRESS REPORT ---
Subjective Progress Note for:: 03/23/17 Subjective:: pt is doing well denied any chest pain no sob bp is stable Physical Exam Vital Signs: Temp Pulse Resp BP Pulse Ox 98.4 F 102 H 14 100/63 93 03/23/17 04:52 03/23/17 04:52 03/23/17 04:52 03/23/17 04:52 03/23/17 04:52 Intake & Output 03/22/17 03/23/17 03/24/17 06:59 06:59 06:59 Intake Total 884 805 Output Total 575 Balance 884 230 Weight 60.8 kg 60.4 kg General appearance: PRESENT: no acute distress, well-developed, well-nourished Head exam: PRESENT: atraumatic, normocephalic Eye exam: PRESENT: conjunctiva pink, EOMI, PERRLA. ABSENT: scleral icterus Ear exam: PRESENT: normal external ear exam Mouth exam: PRESENT: moist, tongue midline Neck exam: PRESENT: full ROM. ABSENT: carotid bruit, JVD, lymphadenopathy, thyromegaly Cardiovascular exam: PRESENT: RRR. ABSENT: diastolic murmur, rubs, systolic murmur Pulses: PRESENT: normal dorsalis pedis pul, +2 pedal pulses bilateral Vascular exam: PRESENT: normal capillary refill GI/Abdominal exam: PRESENT: normal bowel sounds, soft. ABSENT: distended, guarding, mass, organolmegaly, rebound, tenderness Rectal exam: PRESENT: deferred Neurological exam: PRESENT: alert, awake, oriented to person, oriented to place , oriented to time, oriented to situation, CN II-XII grossly intact. ABSENT: motor sensory deficit Psychiatric exam: PRESENT: appropriate affect, normal mood. ABSENT: homicidal ideation, suicidal ideation Skin exam: PRESENT: dry, intact, warm. ABSENT: cyanosis, rash Results Laboratory Results: 03/23/17 04:05 03/23/17 04:05 03/23/17 03/23/17 04:05 04:05 WBC 8.9 RBC 4.35 Hgb 14.5 Hct 43.5 MCV 100 H MCH 33.3 MCHC 33.4 RDW 16.8 H Plt Count 130 L Seg Neutrophils % 76.5 Lymphocytes % 11.9 L Monocytes % 10.8 Eosinophils % 0.3 Basophils % 0.5 Absolute Neutrophils 6.8 Absolute Lymphocytes 1.1 Absolute Monocytes 1.0 Absolute Eosinophils 0.0 Absolute Basophils 0.0 Sodium 131.7 L Potassium 4.2 Chloride 97 L Carbon Dioxide 27 Anion Gap 8 BUN 19 Creatinine 0.79 Est GFR ( Amer) > 60 Est GFR (Non-Af Amer) > 60 Glucose 80 Calcium 8.5 Impressions: Acute Abdomen Series 03/17/17 14:26 IMPRESSION: 1. Nonspecific abdomen with no evidence of bowel obstruction. 2. Thoracic spondylosis and lumbar scoliosis and mild degenerative disc change. Venous Doppler Study 03/18/17 00:00 IMPRESSION: NO EVIDENCE DVT OR SVT IN EITHER LEG. Chest X-Ray 03/20/17 00:00 IMPRESSION: No acute infiltrates. Abdomen/Pelvis CT 03/21/17 00:00 IMPRESSION: New small bilateral pleural effusions. Otherwise, no significant interval change including extensive likely metastatic lesions of the liver and skeleton. Paracentesis Ultrasound 03/21/17 13:28 IMPRESSION: Successful ultrasound-guided paracentesis, specimens sent for testing as per Dr. Malave Assessment & Plan - Diagnosis (1) Abdominal pain Qualifiers: Abdominal location: generalized Qualified Code(s): R10.84 - Generalized abdominal pain Is this a current diagnosis for this admission?: Yes Plan: Continues IV antibiotic (2) Ascites Qualifiers: Ascites type: due to alcoholic cirrhosis Qualified Code(s): K70.31 - Alcoholic cirrhosis of liver with ascites Is this a current diagnosis for this admission?: Yes Plan: s/p paracenetesis x2 (3) Malignant neoplasm of breast, stage 4 Qualifiers: Laterality: unspecified laterality Qualified Code(s): C50.919 - Malignant neoplasm of unspecified site of unspecified female breast Is this a current diagnosis for this admission?: Yes Plan: Consult the oncology for further evaluation (4) Opiate dependence, continuous Is this a current diagnosis for this admission?: Yes (5) COPD (chronic obstructive pulmonary disease) Qualifiers: COPD type: unspecified COPD Qualified Code(s): J44.9 - Chronic obstructive pulmonary disease, unspecified Is this a current diagnosis for this admission?: Yes Plan: Continues to nebulizer treatment (6) Depression Qualifiers: Depression Type: major depressive disorder Is this a current diagnosis for this admission?: Yes (7) Hypotension Qualifiers: Hypotension type: unspecified hypotension type Qualified Code(s): I95.9 - Hypotension, unspecified Is this a current diagnosis for this admission?: Yes Plan: stable s/p albumin nd iv fulid - Time Time Spent with patient: 15-24 minutes Medications reviewed and adjusted accordingly: Yes Within: Other - Inpatient Certification Medical Necessity: Need Close Monitoring Due to Risk of Patient Decompensation Post Hospital Care: D/C Case Briefer Documentation - Plan Summary Plan Summary: cont curr med
--- NOTE | 2017-03-23 09:47 | RADIOLOGY REPORT (SQ) ---
EXAM DESCRIPTION: CHEST SINGLE VIEW COMPLETED DATE/TIME: 03/23/2017 9:37 am REASON FOR STUDY: copd COMPARISON: 03/20/2017 EXAM PARAMETERS: NUMBER OF VIEWS: One view. TECHNIQUE: Single frontal radiographic view of the chest acquired. RADIATION DOSE: NA LIMITATIONS: None. FINDINGS: LUNGS AND PLEURA: Stable small bilateral pleural effusions, right greater than left. No n ew airspace opacities. MEDIASTINUM AND HILAR STRUCTURES: Stable. HEART AND VASCULAR STRUCTURES: Heart stable in size. Normal vasculature. BONES: No acute findings. HARDWARE: Stable. OTHER: No other significant finding. IMPRESSION: STABLE APPEARANCE OF THE CHEST WITH RIGHT GREATER THAN LEFT PLEURAL EFFUSIONS. TECHNICAL DOCUMENTATION: JOB ID: [id number]
[2017-03-23] MEDS: ENOXAPARIN SODIUM INJ 40 MG/0.4 ML DISP.SYRIN SUBCUT SCH (10:05)
[2017-03-23] MEDS: CIPROFLOXACIN 400 MG/D5W RTU 400 MG/200 ML RTUPB IV SCH ×2 (10:05→21:40)
[2017-03-23] MEDS: CLONAZEPAM 1 MG TABLET PO SCH ×2 (10:06→21:39)
[2017-03-23 20:47] LABS: ARTERIAL BLOOD BASE EXCESS 2.4 mmol/L; ARTERIAL BLOOD O2 SATURATION 93.9 % (94-98)
[2017-03-23] MEDS: MONTELUKAST SODIUM 10 MG TABLET PO SCH (21:40)
[2017-03-24 04:37] LABS: ANION GAP 7 (5-19); BLOOD UREA NITROGEN 23 mg/dL (7-20); CALCIUM 8.8 mg/dL (8.4-10.2); CARBON DIOXIDE 26 mmol/L (22-30); CHLORIDE 98 mmol/L (98-107); CREATININE RESULT 0.89 mg/dL (0.52-1.25); GLUCOSE 102 mg/dL (75-110); POTASSIUM 4.5 mmol/L (3.6-5.0); SODIUM 131.4 mmol/L (137-145)
[2017-03-24] MEDS: LANSOPRAZOLE 15 MG TAB.RAP.DR PO SCH ×2 (06:09→17:36)
[2017-03-24] MEDS: METRONIDAZOLE 500 MG TABLET PO SCH (06:09)
[2017-03-24 06:36] LABS: ARTERIAL BLOOD O2 SATURATION 91.8 % (94-98)
[2017-03-24] MEDS: IPRATROPIUM/ALBUTEROL 0.5-2.5 MG/3 ML AMPUL NEB SCH ×3 (07:47→19:26)
--- NOTE | 2017-03-24 08:18 | PDOC PROGRESS REPORT ---
Subjective Progress Note for:: 03/24/17 Subjective:: Pt much worse over last 24 hours, very weak unable to take PO appropriately, today had a long discussion with family, discussed that no further treatment possible, recommended DNR as well as hospice, daughter seemed amenable to that, we will make these arrangements. Unfortunately, daughter does not feel like she can take care of her at home, I recommended inpatient hospice with [facility] in [place], I do believe is imminent given the fact she is not taking any p.o., it is possible that she may within a week to 2 weeks. Physical Exam Vital Signs: Temp Pulse Resp BP Pulse Ox 97.3 F 88 16 95/62 L 97 03/24/17 03:31 03/24/17 07:47 03/24/17 07:47 03/24/17 03:31 03/24/17 07:54 Intake & Output 03/23/17 03/24/17 03/25/17 06:59 06:59 06:59 Intake Total 805 1850 Output Total 575 195 Balance 230 1655 Weight 60.4 kg 60.7 kg General appearance: PRESENT: no acute distress, well-developed, well-nourished Head exam: PRESENT: atraumatic, normocephalic Eye exam: PRESENT: conjunctiva pink, EOMI, PERRLA. ABSENT: scleral icterus Ear exam: PRESENT: normal external ear exam Mouth exam: PRESENT: moist, tongue midline Neck exam: ABSENT: carotid bruit, JVD, lymphadenopathy, thyromegaly Respiratory exam: PRESENT: clear to auscultation jessica. ABSENT: rales, rhonchi, wheezes Cardiovascular exam: PRESENT: RRR. ABSENT: diastolic murmur, rubs, systolic murmur Pulses: PRESENT: normal dorsalis pedis pul Vascular exam: PRESENT: normal capillary refill GI/Abdominal exam: PRESENT: normal bowel sounds, soft. ABSENT: distended, guarding, mass, organolmegaly, rebound, tenderness Rectal exam: PRESENT: deferred Extremities exam: PRESENT: full ROM. ABSENT: calf tenderness, clubbing, pedal edema Neurological exam: PRESENT: alert, awake, oriented to person, oriented to place , oriented to time, oriented to situation, CN II-XII grossly intact. ABSENT: motor sensory deficit Psychiatric exam: PRESENT: appropriate affect, normal mood. ABSENT: homicidal ideation, suicidal ideation Skin exam: PRESENT: dry, intact, warm. ABSENT: cyanosis, rash Results Laboratory Results: 03/23/17 04:05 03/24/17 03:42 03/23/17 03/23/17 03/24/17 20:30 20:44 03:42 Carbonic Acid 1.76 H HCO3/H2CO3 Ratio 17:1 ABG pH 7.33 L ABG pCO2 58.5 H ABG pO2 75.3 L ABG HCO3 30.1 H ABG O2 Saturation 93.9 L ABG Base Excess 2.4 FiO2 2 LITERS Sodium 131.4 L Potassium 4.5 Chloride 98 Carbon Dioxide 26 Anion Gap 7 BUN 23 H Creatinine 0.89 Est GFR ( Amer) > 60 Est GFR (Non-Af Amer) > 60 Glucose 102 Calcium 8.8 Ammonia 22.3 03/24/17 06:30 Carbonic Acid 1.59 H HCO3/H2CO3 Ratio 19:1 ABG pH 7.38 ABG pCO2 52.9 H ABG pO2 64.1 L ABG HCO3 30.5 H ABG O2 Saturation 91.8 L ABG Base Excess 4.0 FiO2 2 LITERS Sodium Potassium Chloride Carbon Dioxide Anion Gap BUN Creatinine Est GFR ( Amer) Est GFR (Non-Af Amer) Glucose Calcium Ammonia Impressions: Acute Abdomen Series 03/17/17 14:26 IMPRESSION: 1. Nonspecific abdomen with no evidence of bowel obstruction. 2. Thoracic spondylosis and lumbar scoliosis and mild degenerative disc change. Venous Doppler Study 03/18/17 00:00 IMPRESSION: NO EVIDENCE DVT OR SVT IN EITHER LEG. Abdomen/Pelvis CT 03/21/17 00:00 IMPRESSION: New small bilateral pleural effusions. Otherwise, no significant interval change including extensive likely metastatic lesions of the liver and skeleton. Paracentesis Ultrasound 03/21/17 13:28 IMPRESSION: Successful ultrasound-guided paracentesis, specimens sent for testing as per Dr. Malave Chest X-Ray 03/23/17 00:00 IMPRESSION: STABLE APPEARANCE OF THE CHEST WITH RIGHT GREATER THAN LEFT PLEURAL EFFUSIONS. Assessment & Plan - Diagnosis (1) Abdominal pain Qualifiers: Abdominal location: generalized Qualified Code(s): R10.84 - Generalized abdominal pain Is this a current diagnosis for this admission?: Yes Plan: Secondary to cancer, worsening, unfortunately whenever we give her a small dose of pain medications he seems to sleep all day, now that we are going to comfort care measures we will be more aggressive with pain management. (2) Ascites Qualifiers: Ascites type: malignant Qualified Code(s): R18.0 - Malignant ascites Is this a current diagnosis for this admission?: Yes Plan: Although cytology was negative this is more likely to be malignant, probably the cause of some of her worsening (3) Malignant neoplasm of breast, stage 4 Qualifiers: Laterality: unspecified laterality Qualified Code(s): C50.919 - Malignant neoplasm of unspecified site of unspecified female breast Is this a current diagnosis for this admission?: Yes Plan: No further treatment possible, had long end-of-life discussion with daughter, agrees to DNR as well as comfort care measures, will make arrangements. - Time Time Spent with patient: 35 or more minutes Critical Time spent with patient: 35 or more minutes Anticipated discharge: Hospice
[2017-03-24] MEDS: CLONAZEPAM 1 MG TABLET PO SCH (12:02)
[2017-03-24] MEDS: ENOXAPARIN SODIUM INJ 40 MG/0.4 ML DISP.SYRIN SUBCUT SCH (12:02)
--- NOTE | 2017-03-24 12:42 | PDOC PROGRESS REPORT ---
Subjective Progress Note for:: 03/24/17 Subjective:: Patient is currently not doing well still feeling very tired and fatigue Very extensive discussed with the patient and the daughter and make the patient' s DNR and DNI and to make the patient's hospice transfer Physical Exam Vital Signs: Temp Pulse Resp BP Pulse Ox 98.0 F 88 16 97/56 L 97 03/24/17 07:21 03/24/17 07:47 03/24/17 07:47 03/24/17 07:21 03/24/17 07:54 Intake & Output 03/23/17 03/24/17 03/25/17 06:59 06:59 06:59 Intake Total 805 1850 Output Total 575 195 Balance 230 1655 Weight 60.4 kg 60.7 kg General appearance: PRESENT: no acute distress Eye exam: PRESENT: PERRLA Mouth exam: PRESENT: neck supple Respiratory exam: PRESENT: decreased breath sounds Cardiovascular exam: PRESENT: +S1, +S2 GI/Abdominal exam: PRESENT: normal bowel sounds, soft Extremities exam: ABSENT: pedal edema Neurological exam: PRESENT: alert, awake, oriented to person, oriented to place Psychiatric exam: PRESENT: anxious Results Laboratory Results: 03/23/17 04:05 03/24/17 03:42 03/23/17 03/23/17 03/24/17 20:30 20:44 03:42 Carbonic Acid 1.76 H HCO3/H2CO3 Ratio 17:1 ABG pH 7.33 L ABG pCO2 58.5 H ABG pO2 75.3 L ABG HCO3 30.1 H ABG O2 Saturation 93.9 L ABG Base Excess 2.4 FiO2 2 LITERS Sodium 131.4 L Potassium 4.5 Chloride 98 Carbon Dioxide 26 Anion Gap 7 BUN 23 H Creatinine 0.89 Est GFR ( Amer) > 60 Est GFR (Non-Af Amer) > 60 Glucose 102 Calcium 8.8 Ammonia 22.3 03/24/17 06:30 Carbonic Acid 1.59 H HCO3/H2CO3 Ratio 19:1 ABG pH 7.38 ABG pCO2 52.9 H ABG pO2 64.1 L ABG HCO3 30.5 H ABG O2 Saturation 91.8 L ABG Base Excess 4.0 FiO2 2 LITERS Sodium Potassium Chloride Carbon Dioxide Anion Gap BUN Creatinine Est GFR ( Amer) Est GFR (Non-Af Amer) Glucose Calcium Ammonia Impressions: Acute Abdomen Series 03/17/17 14:26 IMPRESSION: 1. Nonspecific abdomen with no evidence of bowel obstruction. 2. Thoracic spondylosis and lumbar scoliosis and mild degenerative disc change. Venous Doppler Study 03/18/17 00:00 IMPRESSION: NO EVIDENCE DVT OR SVT IN EITHER LEG. Abdomen/Pelvis CT 03/21/17 00:00 IMPRESSION: New small bilateral pleural effusions. Otherwise, no significant interval change including extensive likely metastatic lesions of the liver and skeleton. Paracentesis Ultrasound 03/21/17 13:28 IMPRESSION: Successful ultrasound-guided paracentesis, specimens sent for testing as per Dr. Malave Chest X-Ray 03/23/17 00:00 IMPRESSION: STABLE APPEARANCE OF THE CHEST WITH RIGHT GREATER THAN LEFT PLEURAL EFFUSIONS. Assessment & Plan - Diagnosis (1) Abdominal pain Qualifiers: Abdominal location: generalized Qualified Code(s): R10.84 - Generalized abdominal pain Is this a current diagnosis for this admission?: Yes Plan: Continues IV antibiotic (2) Ascites Qualifiers: Ascites type: malignant Qualified Code(s): R18.0 - Malignant ascites Is this a current diagnosis for this admission?: Yes (3) Malignant neoplasm of breast, stage 4 Qualifiers: Laterality: unspecified laterality Qualified Code(s): C50.919 - Malignant neoplasm of unspecified site of unspecified female breast Is this a current diagnosis for this admission?: Yes Plan: Consult the oncology for further evaluation (4) Opiate dependence, continuous Is this a current diagnosis for this admission?: Yes (5) COPD (chronic obstructive pulmonary disease) Qualifiers: COPD type: unspecified COPD Qualified Code(s): J44.9 - Chronic obstructive pulmonary disease, unspecified Is this a current diagnosis for this admission?: Yes Plan: Continues to nebulizer treatment (6) Depression Qualifiers: Depression Type: major depressive disorder Is this a current diagnosis for this admission?: Yes (7) Hypotension Qualifiers: Hypotension type: unspecified hypotension type Qualified Code(s): I95.9 - Hypotension, unspecified Is this a current diagnosis for this admission?: Yes - Time Time Spent with patient: 15-24 minutes Medications reviewed and adjusted accordingly: Yes Anticipated discharge: Hospice Within: when bed available - Inpatient Certification Medical Necessity: Need Close Monitoring Due to Risk of Patient Decompensation Post Hospital Care: D/C Airplane Inspector Documentation - Plan Summary Plan Summary: Patient is waiting to go to the hospice service
[2017-03-24] MEDS: OXYCODONE HCL IR 5 MG TABLET PO PRN ×2 (13:07→17:37)
--- NOTE | 2017-03-24 15:07 | PDOC DISCHARGE SUMMARY ---
General - Admit/Disc Date/PCP Admission Date/Primary Care Provider: 03/21/17 23:01 JHON BEATTY MD Discharge Date: 03/24/17 - Discharge Diagnosis (1) Abdominal pain Is this a current diagnosis for this admission?: Yes Summary: From the stage IV breast cancer (2) Ascites Is this a current diagnosis for this admission?: Yes Summary: Status post paracentesis (3) Malignant neoplasm of breast, stage 4 Is this a current diagnosis for this admission?: Yes Summary: Stage IV breast cancer with the liver iand bone metastases (4) Opiate dependence, continuous Is this a current diagnosis for this admission?: Yes (5) COPD (chronic obstructive pulmonary disease) Is this a current diagnosis for this admission?: Yes (6) Depression Is this a current diagnosis for this admission?: Yes (7) Hypotension Is this a current diagnosis for this admission?: Yes - Additional Information Resuscitation Status: Full Code Discharge Activity: Activity As Tolerated Home Medications: Albuterol Sulfate [Ventolin Hfa] 1 puff IH Q4 PRN 03/18/17 Clonazepam [Klonopin] 0.5 mg PO Q12 03/18/17 Fentanyl [Duragesic 75 Mcg/Hr Transdermal Patch] 1 each TD Q3D@1000 03/18/17 Oxycodone HCl [Oxy-Ir 5 mg Tablet] 5 mg PO Q4HP PRN 03/18/17 Acetaminophen [Tylenol 325 mg Tablet] 650 mg PO Q4HP PRN #120 tablet 03/24/17 History of Present Illness History of Present Illness: CASEY GARCIA is a 71 year old female with known hx of stage IV breast ca w/ mets to bone and liver.Currently see a Dr. Regalado as outpatient and the patient is currently living with her daughter came to the emergency department with a complaint of some abdominal discomfort and the painAnd the patient's underwent for the CT abdomen and pelvis which suggest a more liver lesion and also ascites. Patient is currently not taking any chemo or radiation's Patient have a significant history of the COPD and the recently admitting in the hospital in ICU and intubated Patient seen by the general surgery and suggest do not look like any peritonitisPatient also complains some loose stoolDenied any nausea no vomiting Patient's appetite is still very poor Hospital Course Hospital Course: This is a 71-year-old female with a stage IV breast cancer with the liver and the bone Mrs. metastatic disease came to the emergency department with a complaint for abdominal pain and patients found the new onset of ascites with a new liver lesionAnd patient underwent for a paracentesis Patient's already have a multiple other comorbidity including the end-stage COPD with this stage IV breast cancers with generalized weakness Patient seen by the oncology and general surgery and at this point patient is getting more worse At this point patient have a no other options and the patient's and the daughter decided to go for hospice care with this end-stage disease with a life expectancy is less than 6 month and patients at this point transfer to the hospice facility Physical Exam Vital Signs: Temp Pulse Resp BP Pulse Ox 97.9 F 93 99 H 103/62 100 03/24/17 12:19 03/24/17 14:07 03/24/17 14:07 03/24/17 12:19 03/24/17 14:07 Intake & Output 03/23/17 03/24/17 03/25/17 06:59 06:59 06:59 Intake Total 805 1850 0 Output Total 575 195 75 Balance 230 1655 -75 Weight 60.4 kg 60.7 kg General appearance: PRESENT: no acute distress Eye exam: PRESENT: PERRLA Mouth exam: PRESENT: dry mucosa Respiratory exam: PRESENT: clear to auscultation jessica Cardiovascular exam: PRESENT: +S1, +S2 GI/Abdominal exam: PRESENT: normal bowel sounds, soft Extremities exam: ABSENT: pedal edema Neurological exam: PRESENT: alert, awake Skin exam: PRESENT: dry Results Laboratory Results: 03/23/17 04:05 03/24/17 03:42 03/23/17 03/23/17 03/24/17 20:30 20:44 03:42 Carbonic Acid 1.76 H HCO3/H2CO3 Ratio 17:1 ABG pH 7.33 L ABG pCO2 58.5 H ABG pO2 75.3 L ABG HCO3 30.1 H ABG O2 Saturation 93.9 L ABG Base Excess 2.4 FiO2 2 LITERS Sodium 131.4 L Potassium 4.5 Chloride 98 Carbon Dioxide 26 Anion Gap 7 BUN 23 H Creatinine 0.89 Est GFR ( Amer) > 60 Est GFR (Non-Af Amer) > 60 Glucose 102 Calcium 8.8 Ammonia 22.3 03/24/17 06:30 Carbonic Acid 1.59 H HCO3/H2CO3 Ratio 19:1 ABG pH 7.38 ABG pCO2 52.9 H ABG pO2 64.1 L ABG HCO3 30.5 H ABG O2 Saturation 91.8 L ABG Base Excess 4.0 FiO2 2 LITERS Sodium Potassium Chloride Carbon Dioxide Anion Gap BUN Creatinine Est GFR ( Amer) Est GFR (Non-Af Amer) Glucose Calcium Ammonia Impressions: Acute Abdomen Series 03/17/17 14:26 IMPRESSION: 1. Nonspecific abdomen with no evidence of bowel obstruction. 2. Thoracic spondylosis and lumbar scoliosis and mild degenerative disc change. Venous Doppler Study 03/18/17 00:00 IMPRESSION: NO EVIDENCE DVT OR SVT IN EITHER LEG. Abdomen/Pelvis CT 03/21/17 00:00 IMPRESSION: New small bilateral pleural effusions. Otherwise, no significant interval change including extensive likely metastatic lesions of the liver and skeleton. Paracentesis Ultrasound 03/21/17 13:28 IMPRESSION: Successful ultrasound-guided paracentesis, specimens sent for testing as per Dr. Malave Chest X-Ray 03/23/17 00:00 IMPRESSION: STABLE APPEARANCE OF THE CHEST WITH RIGHT GREATER THAN LEFT PLEURAL EFFUSIONS. Plan Time Spent: Greater than 30 Minutes - Very extensive discussions with the patient and the family and discussed with the oncology pretty much patient's was discharged to the inpatient hospice because the comfort careThe bed is available
[2017-03-24 15:53] VITALS: BP 96/59
[2017-03-24] MEDS ORDERED: CIPROFLOXACIN HCL 500 MG TABLET PO SCH (22:00)
== END 2017-03-24 20:37 | disposition hospice, inpatient (51) | DRG 598 ==
LOC: ER 14:04 → 2N 23:22 → UNDOADMIN 23:22 → EH 23:51 → UNDOADMIN 23:51 → EH 03-18 02:18 → 2N 03-18 02:18 → 3W 03-21 22:26 → 2N 03-21 23:01 → UNDOADMIN 03-21 23:01 → ICU 03-21 23:45 → 3W 03-21 23:45 → 3N 03-22 13:56 → ICU 03-22 13:56 → UNDODISIN 03-24 20:37
PROVIDERS: ADMIT Internal Medicine; ATTEND Internal Medicine
PROC: 3E0F73Z Introduction of Anti-inflammatory into Respiratory Tract, Via Natural or Artificial Opening (ICD-10-PCS; 2017-03-17)
PROC: 0W9G3ZX Drainage of Peritoneal Cavity, Percutaneous Approach, Diagnostic (ICD-10-PCS; principal; 2017-03-18)
PROC: 0W9G3ZX Drainage of Peritoneal Cavity, Percutaneous Approach, Diagnostic (ICD-10-PCS; 2017-03-21)
DX: C50.919 Malignant neoplasm of unspecified site of unspecified female breast (principal); C78.7 Secondary malignant neoplasm of liver and intrahepatic bile duct; R18.0 Malignant ascites; C79.51 Secondary malignant neoplasm of bone; Z66 Do not resuscitate; J44.9 Chronic obstructive pulmonary disease, unspecified; F32.9 Major depressive disorder, single episode, unspecified; I95.9 Hypotension, unspecified; K70.31 Alcoholic cirrhosis of liver with ascites; Z79.891 Long term (current) use of opiate analgesic; M47.894 Other spondylosis, thoracic region; M41.9 Scoliosis, unspecified; Z86.711 Personal history of pulmonary embolism; Z88.6 Allergy status to analgesic agent; Z88.0 Allergy status to penicillin
CPT/HCPCS: 36415; 36600; 49083; 71010; 71020; 74022; 74176; 74177; 80048; 80053; 81001; 82140; 82803; 83690; 85025; 85610; 85730; 87040; 87070; 87075; 87086; 87205; 87493; 88305; 88341; 88342; 89050; 93306; 93970; 96365; 99285; A9270-GY; G8978-GP; G8979-GP; J0696; J0744; J1650; J3490; J7030; J7620; P9047